=== PATIENT | female | born 1955 | race African-American/Black ===

== ENCOUNTER 2017-11-14 19:01 | Inpatient (IN) | payer MEDICARE, MEDICAID ==
[2017-11-14] MEDS ORDERED: Ketorolac Tromethamine 30 MG/ML VIAL ONE (20:04)
[2017-11-14] MEDS ORDERED: Metoclopramide HCl 10 MG/2 ML VIAL ONE (20:04)
[2017-11-14] MEDS ORDERED: Dexamethasone 4 mg/ml Vial ONE (20:04)
[2017-11-14 20:11] LABS: #Basophils 0.2 thou/uL (0.0-0.2); #Eosinphils 0.2 thou/uL (0.0-0.7); #Lymphocytes 2.5 thou/uL (1.20-3.40); #Monocytes 0.6 thou/uL (0.11-0.59); #Neutrophils 3.5 thou/uL (1.40-6.50); %Basophils 2.3 % (0.0-1.0); %Eosinophils 3.1 % (0.0-10.0); %Monocytes 9.1 % (0.0-10.0); %Neutrophils 49.5 % (42.0-75.0); Hemoglobin 14.4 g/dL (12.0-16.0); Mean Corpuscular HGB CONC 32.2 g/dL (32.0-36.0); Mean Corpuscular Hemoglobin 25.5 pg (27.0-31.0); Mean Platelet Volume 10.8 fL (7.4-10.4); Platelet Count 179 thou/uL (130-400); RBC Distribution Width 13.6 % (11.5-14.5); Red Blood Cell (RBC) Count 5.65 mill/uL (4.20-5.40)
[2017-11-14 20:21] LABS: PTT 27.1 SEC (22.9-36.1); Prothrombin Time 12.8 SEC (12.0-14.7)
--- NOTE | 2017-11-14 20:28 | RAD ---
PORTABLE CHEST: 11/14/17 HISTORY: Chest pain. The lungs are clear. Heart and mediastinum are unremarkable. Vascular markings are normal. IMPRESSION: No acute finding. POS: [facility]
[2017-11-14 20:37] LABS: ALT (SGPT) 19 U/L (8-55); AST (SGOT) 27 U/L (5-34); Albumin 4.3 g/dL (3.4-4.8); Alkaline Phosphatase 68 U/L (40-150); Anion Gap 15 mmol/L (10-20); BUN (Urea Nitrogen) 16 mg/dL (9.8-20.1); Bilirubin, Total 0.2 mg/dL (0.2-1.2); CK (CPK) 200 U/L (29-168); Calc. Creatinine Clearance 0 mL/min (70-130); Calcium 9.5 mg/dL (7.8-10.44); Carbon Dioxide 24 mmol/L (23-31); Chloride 106 mmol/L (98-107); Estimated GFR-MDRD 55; Globulin 3.3 g/dL (2.4-3.5); Glucose 86 mg/dL (80-115); Lipase 14 U/L (8-78); Protein, Total 7.6 g/dL (6.0-8.3); Sodium 140 mmol/L (136-145)
[2017-11-14 20:38] LABS: CKMB 3.1 ng/mL (0-6.6); Troponin I 0.028 ng/mL (< 0.028)
--- NOTE | 2017-11-14 21:32 | CT ---
CT HEAD WITHOUT CONTRAST: 11/14/17 Multiple axial tomograms obtained through the head without IV enhancement. HISTORY: Headache. Ventricles have normal size and position. There is a focal area of encephalomalacia involving the lef t frontal lobe which extends to the precentral gyrus and inferiorly into the subcortical white matter indicating an old left MCA infarct. There is no hemorrhage. There is no evidence of acute infarct. N o mass. IMPRESSION: Evidence of a remote left frontal lobe infarct. No evidence of acute process. POS: [facility]
[2017-11-14 21:55] LABS: Troponin I 0.041 ng/mL (< 0.028)
[2017-11-14] MEDS ORDERED: Enoxaparin Sodium 100 MG/ML SYRINGE ONE ×2 (22:48→22:50)
[2017-11-14] MEDS ORDERED: Nitroglycerin 2% Ointment 1 INCH/1 GM Packet ONE (22:48)
[2017-11-15] MEDS ORDERED: Zolpidem Tartrate 5 MG TAB PO SCH ×2 (00:45→21:00)
[2017-11-15 00:54] LABS: Troponin I 0.023 ng/mL (< 0.028)
[2017-11-15] MEDS ORDERED: Zolpidem Tartrate 5 MG TAB ONE (01:12)
[2017-11-15] MEDS ORDERED: Ondansetron ODT 4 MG TAB SL PRN (01:35)
[2017-11-15] MEDS ORDERED: Ondansetron HCl/PF 4 MG/2 ML Vial IVP PRN (01:35)
[2017-11-15] MEDS ORDERED: Acetaminophen 325 MG TAB PO PRN (01:35)
[2017-11-15] MEDS ORDERED: Nitroglycerin 2% Ointment 1 INCH/1 GM Packet TOP SCH (01:45)
[2017-11-15 02:10] VITALS: BMI 34.6
[2017-11-15 06:02] LABS: Troponin I 0.019 ng/mL (< 0.028)
[2017-11-15] MEDS ORDERED: Nicotine 14 MG PATCH TD SCH (06:15)
[2017-11-15] MEDS ORDERED: Furosemide 40 MG TAB PO PRN (06:18)
[2017-11-15] MEDS ORDERED: clonazePAM 0.5 MG TAB PO PRN (06:18)
[2017-11-15] MEDS ORDERED: PROVENTIL INHALER 6.7 G (200 INHALATIONS) INH PRN (06:18)
[2017-11-15 06:51] LABS: #Lymphocytes 1.4 thou/uL (1.20-3.40); #Monocytes 0.4 thou/uL (0.11-0.59); #Neutrophils 4.4 thou/uL (1.40-6.50); %Basophils 0.4 % (0.0-1.0); %Eosinophils 0.1 % (0.0-10.0); %Lymphocytes 21.9 % (21.0-51.0); %Monocytes 6.3 % (0.0-10.0); %Neutrophils 71.3 % (42.0-75.0); Hemoglobin 12.8 g/dL (12.0-16.0); Mean Corpuscular HGB CONC 31.3 g/dL (32.0-36.0); Mean Corpuscular Hemoglobin 24.7 pg (27.0-31.0); Mean Corpuscular Volume 79.1 fl (81.0-99.0); Mean Platelet Volume 10.8 fL (7.4-10.4); Platelet Count 180 thou/uL (130-400); RBC Distribution Width 13.5 % (11.5-14.5); Red Blood Cell (RBC) Count 5.17 mill/uL (4.20-5.40); White Blood Cell (WBC) Count 6.2 thou/uL (4.8-10.8)
--- NOTE | 2017-11-15 06:57 | HP ---
PRIMARY CARE PHYSICIAN: Dr. Leo Velazquez SQL DBA: Dr. Guajardo CHIEF COMPLAINT: Chest pain. HISTORY OF PRESENT ILLNESS: A 62-year-old female with a known history of coronary artery disease, CH F with an EF of 33%, who presents with a chief complaint of chest pain. The patient has frequent epi sodes of chest pain. The one she describes today is actually slightly different from her prior episo migdalia of chest pain related to her known cardiac disease. The chest pain today the patient actually lo calizes more to her right shoulder. She describes it as a sharp pinching sensation that occurs spora dically both at rest and with movement and without warning. It is described as sharp and rapidly res olves if she stops moving her shoulder. At the time of my evaluation, the patient endorses right shoulder pain. Of note, during this entire visit, the patient was frequently tearful when talking about mostly her s ocial issues. REVIEW OF SYSTEMS: As per HPI. CONSTITUTIONAL: No recent fevers or chills. HEENT: The patient endorses having headaches when she is talking about stressful things and tearful. Otherwise, no new vision changes or dizziness. CARDIOVASCULAR: Chest pain is clarified as right shoulder pain as above with some involvement of int ermittent neck pain with the shoulder pain, no chest pressure, no left-sided arm numbness or tingling . GASTROINTESTINAL: No nausea, no vomiting, no diarrhea, no abdominal pain. MUSCULOSKELETAL: No new myalgias or arthralgias. The remainder of review of systems otherwise negative. PAST MEDICAL HISTORY: 1. Type 2 diabetes. 2. Hypertension. 3. Obesity. 4. Congestive heart failure with EF of 33%. 5. Status post 11/09/2016 left heart catheterization demonstrating mild to moderate three-vessel dis ease and moderate OM disease, left main disease. 6. Status post . 7. Status post back surgery. 8. See documented history of question of schizophrenia. HOME MEDICATIONS: Please see the EMR for full details. The patient denies any changes to her medica tions in the last month. ALLERGIES: No known drug allergies. FAMILY HISTORY: The patient does not endorse a family history of cardiac disease. SOCIAL HISTORY: The patient is an active tobacco user of approximately half pack a day. Denies any alcohol or illicit drug use. The patient lives with her . The patient states that she someti mes "hates her " due to remote episode of infidelity. The patient is very tearful talking abo ut her feelings and fears upon her prior relationship issues throughout this entire visit. While dis cussing her social issues and her social distress she becomes quite tearful and anxious and complains of a headache. PHYSICAL EXAMINATION: VITAL SIGNS: Temperature of 98.3, pulse of 86, respirations 16, satting 95% on room air, blood press ure 133/63. GENERAL: The patient is awake, alert, conversant, in no acute distress, lying in the hospital bed. HEENT: Moist mucous membranes. Equal eye motions are intact. NECK: No carotid bruits. CARDIOVASCULAR: S1, S2. Pulses 2+ bilateral upper extremities, no pitting pedal edema. RESPIRATORY : Grossly clear to auscultation. No wheezes, rales or rhonchi. ABDOMEN: Positive bowel sounds, soft, nontender to palpation. MUSCULOSKELETAL: Moving all 4 extremities. LABORATORY AND IMAGING: WBC 7.0, hemoglobin 14.4, hematocrit 44.6, platelets 179. PT was 12.8, INR 1.0, sodium 140, potassium 5.0, chloride 106, bicarbonate 24, BUN 16, creatinine 1.21, glucose 86, ca lcium 9.5, total bilirubin 0.2, AST 27, ALT is 19. Creatinine kinase is 200. Alkaline phosphatase 6 8. Troponins are 0.028 followed by 0.041 followed by 0.023 followed by 0.019. BNP is 13.7, lipase 1 4, total protein 7.6, albumin 4.3. Chest x-ray 11/14/2017. Impression: "No acute finding." Brain CT to 11/14/2017. Impression: "Evidence of remote left frontal lobe infarct. No evidence of a cute process." ASSESSMENT AND PLAN: A 62-year-old female with a chief complaint of chest pain. 1. Chest pain. Localization of the patient's chest pain is less classic for coronary artery disease . However, the patient has a known history of coronary artery disease in the setting of mild troponi n elevation. We will continue to trend and closely monitor the patient's hemodynamics. I will notif y her outpatient ems educator and defer to them whether or not to pursue any advanced testing given t hat she does have known disease. I do not feel that she is currently in a CHF exacerbation situation . 2. Right shoulder discomfort. The patient has a known history of arthritis that she endorses. The patient's symptoms are reproducible particularly with right arm extension, raising the possibility of perhaps an orthopedic etiology for her chest pain. Plain films of the right shoulder, supportive nichelle ralph. Apply lidocaine patch p.r.n. as well. 3. Known history of cardiovascular disease. Please see discussion above. 4. Anxiety and depression. The patient appears to have a prominent component of anxiety, depression frequently becoming tearful and with somatic manifestations of her anxiety including headache. I re commended to the patient that she have this addressed on an outpatient basis. The patient states nata t this has been recommended to her, but she has not been able to do this. 5. Admit the patient to observation status to medical/surgical with telemetry. Greater than 45 minutes spent coordinating care for this patient. Thank you for asking me to care for the patient.
[2017-11-15 07:18] LABS: ALT (SGPT) 17 U/L (8-55); AST (SGOT) 15 U/L (5-34); Albumin 3.7 g/dL (3.4-4.8); Alkaline Phosphatase 61 U/L (40-150); Anion Gap 12 mmol/L (10-20); BUN (Urea Nitrogen) 17 mg/dL (9.8-20.1); Bilirubin, Total 0.2 mg/dL (0.2-1.2); Calc. Creatinine Clearance 98 mL/min (70-130); Calcium 9.1 mg/dL (7.8-10.44); Carbon Dioxide 25 mmol/L (23-31); Chloride 108 mmol/L (98-107); Estimated GFR-MDRD 78; Globulin 2.6 g/dL (2.4-3.5); Glucose 105 mg/dL (80-115); Potassium 4.4 mmol/L (3.5-5.1); Protein, Total 6.3 g/dL (6.0-8.3); Sodium 141 mmol/L (136-145)
[2017-11-15] MEDS ORDERED: Aspirin 325 MG TAB PO SCH (08:00)
[2017-11-15] MEDS ORDERED: Potassium Chloride 10 MEQ TAB PO SCH (08:00)
[2017-11-15] MEDS ORDERED: Carvedilol 3.125 MG TAB PO SCH (09:00)
[2017-11-15] MEDS ORDERED: HYDROcodone/Acetaminophen 10/325 mg Tablet PO SCH (09:00)
[2017-11-15] MEDS ORDERED: Lidocaine 5% Patch TD SCH (09:00)
[2017-11-15] MEDS ORDERED: metFORMIN XR 500 MG TAB PO SCH (09:00)
[2017-11-15] MEDS ORDERED: Enoxaparin Sodium 40 MG/0.4 ML SYRINGE SC SCH (09:00)
[2017-11-15] MEDS ORDERED: Pregabalin 75 MG CAP PO SCH (09:00)
[2017-11-15] MEDS ORDERED: Lisinopril 5 MG TAB PO SCH (09:00)
--- NOTE | 2017-11-15 09:13 | RAD ---
THREE VIEW RIGHT SHOULDER: Indication: AC joint pain. FINDINGS: No fracture or dislocation. There is mild osteoarthritis. IMPRESSION: Mild osteoarthritis of the right shoulder without evidence of an acute osseous abnormality. POS: [facility]
--- NOTE | 2017-11-15 11:53 | CON ---
DATE OF CONSULTATION: 11/15/2017 PRIMARY HUMAN RESOURCES TRAINING MANAGER: Dr. Mulugeta Guajardo REASON FOR CONSULTATION: Indeterminate troponin levels. HISTORY OF PRESENT ILLNESS: Ms. Leia Palmer is a 62-year-old patient of Dr. Guajardo. The patien t came to the hospital last night for evaluation. She said that she had some chest tightness and als o had some difficulty with seeing anything for a couple of minutes when she is lying in bed. Her hus band came back and eventually took her blood pressure and it was elevated. She came here to the [facility] for evaluation and was found to have indeterminate troponins. PAST MEDICAL HISTORY: She has a history of cardiac catheterization done 11/10/2016. Mild nonobstruc tive plaque in the coronaries with the most significant being a 30% ostial lesion in the left main, b ut no obstructive stenosis. Other past history: 1. Hypertension. 2. Obesity. 3. Diabetes. 4. Previous section. 5. Back surgery. REVIEW OF SYSTEMS: CONSTITUTIONAL: No significant weight gain or loss. VISION: No changes. HEARING: No changes. PULMONARY: No cough or wheezing. GASTROINTESTINAL: No nausea, vomiting, diarrhea. SKIN: No rashes. NEUROLOGIC: No unilateral weakness or numbness. PSYCHIATRIC: No unusual depression or anxiety. HEMATOLOGIC: No unusual bruising. GENITOURINARY: No burning with urination. MUSCULOSKELETAL: No unusual joint pains. MEDICATIONS: 1. Lisinopril 5 mg daily. 2. The home medicine list lists carvedilol 3.125 mg twice a day. The patient is uncertain about gautam e of her medicines. 3. Metformin. 4. Ventolin. 5. Atorvastatin she mentions, but is not on the list in the hospital. 6. Aspirin. PHYSICAL EXAMINATION: GENERAL: This is a pleasant, elderly woman. She is somewhat apprehensive. She is also somewhat con cerned because she did not eat breakfast. When I told her that she is able to eat breakfast, she was more relaxed. VITAL SIGNS: Blood pressure 132/66, pulse 80 regular. HEENT: Eyes; sclerae nonicteric. Mouth; mucous membranes moist. NECK: Supple, no lymphadenopathy. LUNGS: Clear, no wheezing, rales or rhonchi. CARDIAC: Normal S1, normal S2. There is no murmur, rub or gallop. ABDOMEN: Obese, nontender, no hepatosplenomegaly. EXTREMITIES: Warm, dry, no clubbing, no cyanosis or edema. HEMATOLOGIC: No unusual bruising. GENITOURINARY: No burning with urination. Echocardiogram is pending. LABORATORY: The troponin level, peak was 0.041 still in the indeterminate range, indeterminate is al l the way up to 0.29. ASSESSMENT: 1. Mild nonobstructive atherosclerotic heart disease. 2. Hypertension. 3. History of cardiomyopathy, subsequent ejection fraction last spring is listed as over 50%. 4. Blood pressure is somewhat labile. She said she does not feel well on lisinopril. PLAN: 1. Review echocardiogram. 2. Consider changing from lisinopril to angiotensin receptor maegan. 3. Confirm that she is taking carvedilol. 4. Further recommendations after review of the echo. Dr. Guajardo will resume care tomorrow. ADDENDUM: Echocardiogram showed ejection fraction is normal at 55%-60%, there is mild mitral regurgi tation, trace tricuspid insufficiency and grade I diastolic dysfunction. Based on this, the patient can be released home to follow up with Dr. Guajardo as an outpatient. The patient states she did no t feel well on lisinopril, we would recommend consideration for Diovan 80 mg twice a day to be starte d tomorrow. To follow up with Dr. Guajardo as an outpatient.
[2017-11-15 11:59] VITALS: BP 148/67; TEMP 98.3
[2017-11-15] MEDS ORDERED: Lidocaine Patch Removal 1 EACH TOP SCH (21:00)
--- NOTE | 2017-11-16 06:26 | DIS ---
PRIMARY CARE PHYSICIAN: Leo Velazquez D.O. DIAGNOSES ON ADMISSION: 1. Chest pain, rule out acute coronary syndrome. 2. Right shoulder pain. 3. Coronary artery disease. 4. Anxiety and depression. DIAGNOSES ON DISCHARGE: 1. Mild nonobstructive atherosclerotic heart disease. 2. Chest pain, resolved. 3. Hypertension. 4. Cardiomyopathy with ejection fraction of 55% to 60%. PROCEDURES: 1. CT of the head without contrast showing evidence of remote left frontal infarct, no acute process . 2. Right shoulder x-ray showing mild osteoarthritis of the right shoulder without evidence of acute abnormality. 3. Echocardiogram showing ejection fraction of 55% to 60%, mild mitral regurgitation, trace tricuspi d insufficiency, and grade I diastolic dysfunction. CONSULTATIONS: Cardiology, Dr. Simpson for Dr. Guajardo. LABORATORY DATA: Cardiac marker indeterminate at 0.041 followed by 2 negatives. Remainder of the la b was unremarkable. SUMMARY OF HOSPITAL COURSE: This is a 62-year-old -[place] female with a known history of co ronary artery disease and congestive heart failure, who presented complaining of frequent episodes of chest pain from her heart disease, but then the pain was a little bit different the day of presentat ion and more localized to her right shoulder pinching pain, sharp and rapidly resolves if she stops m oving. Patient was put in observation with her chest pain. Dr. Simpson was consulted. An echocardio gram was ordered with the above results. Dr. Simpson evaluated the patient, and given her negative ca rdiac markers following that one indeterminate and her ejection fraction on her echocardiogram, he re commended that she could be discharged. Did change her from lisinopril to Diovan and her lisinopril made her feel bad and she is to follow up with Dr. Guajardo. Patient had no more chest pain at the time of discharge. DISCHARGE MANAGEMENT: Discharged home. Follow up with Dr. Guajardo in 1 week. ACTIVITY: As tolerated. DIET: Healthy heart, low sodium diet. DISCHARGE MEDICATIONS: 1. Valsartan 80 mg twice a day. Patient is to continue all of her other home medications includin. Depakote ER 250 mg daily. 3. Omeprazole 20 mg daily. 4. Aspirin 81 mg daily. 5. Carvedilol 3.125 mg twice a day. 6. Ambien 10 mg at night. 7. Metformin 250 mg at night. 8. Metformin ER 500 mg daily. 9. Carbamazepine 200 mg twice a day. 10. Seroquel 100 mg daily.
[2017-11-16] MEDS ORDERED: Aspirin 81 mg Enteric Coated Tablet PO SCH (09:00)
[2017-11-16] MEDS ORDERED: Valsartan 80 MG TAB PO SCH ×2 (09:00→21:00)
--- NOTE | 2017-12-23 12:36 | EKG ---
Test Reason : CHEST PAIN Blood Pressure : / mmHG Vent. Rate : 063 BPM Atrial Rate : 063 BPM P-R Int : 144 ms QRS Dur : 070 ms QT Int : 396 ms P-R-T Axes : 070 -35 063 degrees QTc Int : 405 ms Normal sinus rhythm Possible Left atrial enlargement Left axis deviation Septal infarct , age undetermined Abnormal ECG Confirmed by LEATHA WALKER, DONOVAN ([id number]), editorial specialist MAGDALENE GRIFFIN ([id number]) on 12/23/2017 12:35:44 PM Referred By: Confirmed By:DONOVAN ZHANG MD
== END 2017-11-15 14:15 | disposition home or self-care (01) | DRG 313 ==
LOC: ERS 19:01 → 2NO 22:00
PROVIDERS: ADMIT Internal Medicine; ATTEND Internal Medicine
DX: R07.9 Chest pain, unspecified (principal); I25.10 Atherosclerotic heart disease of native coronary artery without angina pectoris; I11.0 Hypertensive heart disease with heart failure; I50.9 Heart failure, unspecified; I42.9 Cardiomyopathy, unspecified; E11.9 Type 2 diabetes mellitus without complications; E66.9 Obesity, unspecified; Z68.34 Body mass index [BMI] 34.0-34.9, adult; F17.210 Nicotine dependence, cigarettes, uncomplicated; F41.9 Anxiety disorder, unspecified; F32.9 Major depressive disorder, single episode, unspecified; M25.511 Pain in right shoulder
CPT/HCPCS: 36415; 70450; 71045; 80053; 82550; 82553; 83690; 83880; 84484; 85025; 85610; 85730; 93005; 93306; 96365; 96372; 96375; 99406; G8978-GP-CJ; G8979-GP-CJ; G8980-GP-CJ; J1100; J1650; J1885; J2765

== ENCOUNTER 2018-02-09 07:36 | Outpatient (CLI) | payer MEDICARE, MEDICAID ==
--- NOTE | 2018-02-09 10:43 | MRI ---
MRI LUMBAR SPINE WITH AND WITHOUT CONTRAST: Date: 02/09/18 Multiplanar, multisequential imaging of lumbar spine obtained. Postcontrast images obtained after adm inistration of 20 mL MultiHance IV. INDICATIONS: Low back pain. History of prior lumbar surgery. FINDINGS: Lumbar vertebra maintain height throughout. Pedicle screws are seen transfixing L5 and S1. Slight ant erolisthesis at L4-5 is noted. Interbody implant and partial fusion at L5-S1. On sagittal imaging, there is evidence of a broad based disc bulge at the T10-T11 level which abuts t he anterior cord. This is not adequately evaluated on this lumbar study and is only seen at the upper portion of the sagittal image. At T11-T12, there is mild disc bulge with no evidence of central canal stenosis. At T12-L1, there is no significant disc bulge. At L1-2, there is no significant disc bulge. Mild facet arthrosis. No central canal or foraminal sten osis. At L2-3, there is mild disc bulge. Mild to moderate facet and ligamentous hypertrophy. Very mild cent ral canal stenosis. At L3-4, there is a more prominent diffuse disc bulge flattening the thecal sac at this level. The fa cet and ligamentous hypertrophy is more pronounced. These changes result in moderate to severe centra l canal stenosis at this level. Bilateral foraminal stenosis secondary to diffuse disc bulge and face t hypertrophy. At L4-5, there is slight anterolisthesis as noted above. This is associated with a broad based disc b ulge. Facet and ligamentous hypertrophy is very prominent. Severe central canal stenosis. Bilateral f oraminal stenosis. At L5-S1, there is interbody implant with fusion. No residual disc. No central canal or foraminal jorge nosis identified. IMPRESSION: Moderate to severe central canal stenosis at L3-4 and at L4-5 as described above. POS: [facility]
== END 2018-02-09 07:37 | disposition home or self-care (01) ==
LOC: SCSMRI 07:36
PROVIDERS: ATTEND Neurological Surgery
DX: Q76.2 Congenital spondylolisthesis (principal); M48.061 Spinal stenosis, lumbar region without neurogenic claudication; Z98.1 Arthrodesis status
CPT/HCPCS: 72158; 82565

== ENCOUNTER 2018-05-07 09:07 | Outpatient (CLI) | payer MEDICARE ==
[2018-05-07 10:55] LABS: Hemoglobin 12.8 g/dL (12.0-16.0); Mean Corpuscular HGB CONC 32.4 g/dL (32.0-36.0); Mean Corpuscular Hemoglobin 25.2 pg (27.0-31.0); Mean Corpuscular Volume 77.8 fL (78.0-98.0); Mean Platelet Volume 10.8 fL (7.4-10.4); Platelet Count 163 thou/uL (130-400); RBC Distribution Width 12.7 % (11.5-14.5); Red Blood Cell (RBC) Count 5.09 mill/uL (4.20-5.40); White Blood Cell (WBC) Count 5.7 thou/uL (4.8-10.8)
[2018-05-07 11:12] LABS: Anion Gap 15 mmol/L (10-20); BUN (Urea Nitrogen) 18 mg/dL (9.8-20.1); Calc. Creatinine Clearance 0 mL/min (70-130); Calcium 9.6 mg/dL (7.8-10.44); Carbon Dioxide 27 mmol/L (23-31); Chloride 102 mmol/L (98-107); Estimated GFR-MDRD 65; Glucose 107 mg/dL (80-115); Potassium 4.3 mmol/L (3.5-5.1); Sodium 140 mmol/L (136-145)
--- NOTE | 2018-05-07 22:38 | EKG ---
Test Reason : Blood Pressure : / mmHG Vent. Rate : 063 BPM Atrial Rate : 063 BPM P-R Int : 160 ms QRS Dur : 070 ms QT Int : 406 ms P-R-T Axes : 075 -18 061 degrees QTc Int : 415 ms Sinus rhythm with occasional Premature ventricular complexes Low voltage QRS Borderline ECG When compared with ECG of 14-NOV-2017 19:02, Premature ventricular complexes are now Present Criteria for Septal infarct are no longer Present T wave amplitude has decreased in Anterior leads Confirmed by Nate GUERRA ([id number]) on 05/07/2018 10:37:58 PM Referred By: LASHON Confirmed By:Nate GUERRA
== END 2018-05-07 09:08 | disposition home or self-care (01) ==
LOC: LABBT 09:07
PROVIDERS: ATTEND Neurological Surgery
DX: Z01.818 Encounter for other preprocedural examination (principal); M54.16 Radiculopathy, lumbar region
CPT/HCPCS: 80048; 85027; 93005; 93010

== ENCOUNTER 2018-05-07 09:15 | Inpatient (IN) | payer MEDICARE ==
[2018-05-07 10:07] VITALS: BMI 33.9
[2018-05-14] MEDS ORDERED: Sodium Chloride 0.9% 10 ML ONE (08:01)
[2018-05-14] MEDS ORDERED: CEFAZOLIN/Water 2 GM/20 ML SYRINGE ONE (08:25)
[2018-05-14] MEDS ORDERED: Midazolam HCl 2 mg/2 ml Vial ONE (08:44)
[2018-05-14] MEDS ORDERED: Fentanyl 100 MCG/2 ML VIAL ONE ×3 (08:58→11:27)
[2018-05-14] MEDS ORDERED: Glycopyrrolate 0.2 MG/ML 5 ML SYRINGE ONE (09:13)
[2018-05-14] MEDS ORDERED: ePHEDrine/0.9% NaCl/PF SYRINGE 50 mg/10 ml ONE (09:13)
[2018-05-14] MEDS ORDERED: PROPOFOL 200 MG/20 ML VIAL ONE (09:13)
[2018-05-14] MEDS ORDERED: Lidocaine 1% PF 5 ML VIAL ONE (09:13)
[2018-05-14] MEDS ORDERED: Ondansetron HCl/PF 4 MG/2 ML Vial ONE (09:13)
[2018-05-14] MEDS ORDERED: HYDROmorphone 0.5 MG/0.5 ML SYRINGE ONE ×4 (10:40→12:53)
--- NOTE | 2018-05-14 11:32 | OP ---
DATE OF PROCEDURE: 05/14/2018 SURGEON: Andres Castillo M.D. WEB DESIGNER DEVELOPER: PRANAV Duran PROCEDURE: Exploration spinal fusion L5-S1, removal of hardware L5-S1. L3-L5 decompressive laminect elder, posterolateral arthrodesis, demineralized bone matrix, posterolateral arthrodesis, pedicle screw instrumentation L3-L5. PROCEDURE IN DETAIL: The patient was brought to the operating room and intubated. She was rolled in the prone position on gel-filled chest rolls. The previous incision was reopened and extended expos ing L3 through the sacrum. The prior hardware removed the joseph and nuts. The fusion seemed to be tammy id. We next exposed L3-L5 and performed laminectomies, decompressing the neural elements with partic ular focus to the left L4-L5. After complete decompression had been secured, pedicle screws were tung steffany at L3 and L4 bilaterally using lateral fluoroscopic guidance. A joseph was then secured between L3, L4, and L5 connected by nuts, which were final tightened. The wound was then extensively irrigated, immaculate hemostasis was secured. A combination of demineralized bone matrix, local morselized aut ograft was laid over the laminar and posterolateral surfaces for the purpose of arthrodesis. Vancomy thomas powder was applied and the wound was then closed in anatomic layers.
[2018-05-14] MEDS ORDERED: Ondansetron HCl/PF 4 MG/2 ML Vial IVP PRN (11:35)
[2018-05-14] MEDS ORDERED: Promethazine HCl 25 MG/ML VIAL IM PRN ×2 (11:35→12:32)
[2018-05-14] MEDS ORDERED: Promethazine HCl 25 MG/ML VIAL SLOW IVP PRN (11:35)
[2018-05-14] MEDS ORDERED: HYDROmorphone 0.5 MG/0.5 ML SYRINGE SLOW IVP PRN (12:31)
[2018-05-14] MEDS ORDERED: diphenhydrAMINE 50 MG/ML VIAL IVP PRN (12:32)
[2018-05-14] MEDS ORDERED: Promethazine HCl 12.5 MG SUPP PR PRN (12:32)
[2018-05-14] MEDS ORDERED: HYDROcodone/Acetaminophen 10/325 mg Tablet PO PRN (12:32)
[2018-05-14] MEDS ORDERED: Ondansetron HCl/PF 4 MG/2 ML Vial SLOW IVP PRN (12:32)
[2018-05-14] MEDS ORDERED: Meperidine HCl/PF 25 MG/ML VIAL SLOW IVP PRN (12:32)
[2018-05-14] MEDS ORDERED: Milk Of Magnesia 30 ML UDCUP PO PRN (12:32)
[2018-05-14] MEDS ORDERED: Promethazine 25 MG TAB PO PRN (12:32)
[2018-05-14] MEDS ORDERED: traMADol HCl 50 MG TAB PO PRN (12:32)
[2018-05-14] MEDS ORDERED: diphenhydrAMINE 25 MG CAP PO PRN (12:32)
[2018-05-14] MEDS ORDERED: Mag-Al 1200 mg/1200 mg/30 ML UDCUP PO PRN (12:32)
[2018-05-14] MEDS ORDERED: CEFAZOLIN/Water 2 GM/20 ML SYRINGE SLOW IVP SCH (14:00)
[2018-05-14] MEDS: HYDROcodone/Acetaminophen 10/325 mg Tablet PO PRN ×3 (14:05→21:37)
[2018-05-14] MEDS: Sodium Chloride 0.9% 1,000 ML IV SCH (14:15)
[2018-05-14] MEDS ORDERED: PROVENTIL INHALER 6.7 G (200 INHALATIONS) INH PRN (14:58)
[2018-05-14] MEDS ORDERED: Polyethylene Glycol 3350 17 GM Packet PO PRN (15:04)
[2018-05-14] MEDS: carBAMazepine 200 MG TAB PO SCH ×2 (15:21→21:36)
[2018-05-14] MEDS: tiZANidine HCl 4 MG TAB PO PRN ×2 (15:21→21:38)
[2018-05-14] MEDS ORDERED: Artificial Tears 18 DROP/0.9 ML EA EYE PRN (15:24)
[2018-05-14] MEDS ORDERED: Eucerin (Mineral Oil/Petrolatum,White) 30 gm Jar TOP PRN (15:24)
[2018-05-14] MEDS ORDERED: Acetaminophen 325 MG TAB PO PRN (15:24)
[2018-05-14] MEDS ORDERED: Diabetic Tussin 200 MG/10 ML UDCUP PO PRN (15:24)
[2018-05-14] MEDS ORDERED: Dextrose 5% in Water 1,000 ML IV PRN (15:24)
[2018-05-14] MEDS ORDERED: Sodium Chloride 0.65% Nasal 44 ML BOT EA NARE PRN (15:24)
[2018-05-14] MEDS ORDERED: Senokot 8.6 MG TAB PO PRN (15:24)
[2018-05-14] MEDS ORDERED: HumaLOG 300 UNITS/3 ML VIAL SC PRN ×2 (15:24)
[2018-05-14] MEDS ORDERED: Loperamide HCl 2 MG CAP PO PRN (15:24)
[2018-05-14] MEDS ORDERED: hydrALAZINE 20 MG/ML VIAL SLOW IVP PRN (15:24)
[2018-05-14] MEDS ORDERED: Bisacodyl 10 MG SUPP PR PRN (15:24)
[2018-05-14] MEDS ORDERED: Dextrose 50% Abboject 50 ML SYRINGE SLOW IVP PRN (15:24)
[2018-05-14] MEDS ORDERED: Chloraseptic Spray 180 ml Bottle PO PRN (15:24)
--- NOTE | 2018-05-14 15:28 | PDOC.PN ---
- Subjective Encounter Start Date: 05/14/18 Encounter Start Time: 15:26 -: old records requested/rev Patient seen and examined. No new complaints. No overnight events consulted for medical management - Objective MAR Reviewed: Yes Vital Signs & Weight: Vital Signs (12 hours) Temp Pulse Resp BP Pulse Ox 05/14/18 13:54 98.7 F 69 20 98 05/14/18 13:40 98.7 F 69 20 131/75 98 Weight Weight 210 lb Phys Exam - Physical Examination Constitutional: NAD HEENT: PERRLA, moist MMs, sclera anicteric Neck: no JVD, supple Respiratory: no wheezing, no rales, no rhonchi Cardiovascular: RRR, no significant murmur, no rub Gastrointestinal: soft, non-tender, no distention, positive bowel sounds Musculoskeletal: no edema, pulses present Neurological: non-focal, normal sensation, moves all 4 limbs Lymphatic: no nodes Psychiatric: normal affect, A&O x 3 Skin: no rash, normal turgor Dx/Plan (1) S/P laminectomy Code(s): Z98.890 - OTHER SPECIFIED POSTPROCEDURAL STATES Status: Acute Comment: management as per primary team,pain control, post operative care (2) Anxiety and depression Code(s): F41.9 - ANXIETY DISORDER, UNSPECIFIED; F32.9 - MAJOR DEPRESSIVE DISORDER, SINGLE EPISODE, UNSPECIFIED Status: Chronic Comment: resume home medication, seroquel, abilify, cymbalta (3) Diabetes type 2, controlled Code(s): E11.9 - TYPE 2 DIABETES MELLITUS WITHOUT COMPLICATIONS Status: Chronic Comment: resume metformin, insulin as per sliding scale (4) Dyslipidemia Code(s): E78.5 - HYPERLIPIDEMIA, UNSPECIFIED Status: Chronic (5) GERD (gastroesophageal reflux disease) Code(s): K21.9 - GASTRO-ESOPHAGEAL REFLUX DISEASE WITHOUT ESOPHAGITIS Status: Chronic Comment: resume protonix (6) Hypertension Code(s): I10 - ESSENTIAL (PRIMARY) HYPERTENSION Status: Chronic Comment: resume coreg, valsartan (7) Obesity (BMI 30.0-34.9) Code(s): E66.9 - OBESITY, UNSPECIFIED Status: Chronic (8) Bipolar disorder Code(s): F31.9 - BIPOLAR DISORDER, UNSPECIFIED Status: Acute Comment: resume tegretol, depakote - Plan cont current plan of care, plan discussed w/ family * will restart her home medication * monitor vitals * hold BP meds for SBP <120 * medication reviewed as below * symptomatic treatment * start hyperglycemia protocol treatment * pain control * ambulate as tolerated * code status- full code * SCD. * fentanyl prn for pain * discussed with family Review of Systems - Review of Systems Constitutional: negative: fever, chills, sweats, weakness, malaise, other ENT: negative: Ear Pain, Ear Discharge, Nose Pain, Nose Discharge, Nose Congestion, Mouth Pain, Mouth Swelling, Throat Pain, Throat Swelling, Other Respiratory: negative: Cough, Dry, Shortness of Breath, Hemoptysis, SOB with Excertion, Pleuritic Pain, Sputum, Wheezing Cardiovascular: negative: chest pain, palpitations, orthopnea, paroxysmal nocturnal dyspnea, edema, light headedness, other Gastrointestinal: negative: Nausea, Vomiting, Abdominal Pain, Diarrhea, Constipation, Melena, Hematochezia, Other Genitourinary: negative: Dysuria, Frequency, Incontinence, Hematuria, Retention , Other Musculoskeletal: Back Pain. negative: Neck Pain, Shoulder Pain, Arm Pain, Hand Pain, Leg Pain, Foot Pain, Other - Medications/Allergies Allergies/Adverse Reactions: Allergies Allergy/AdvReac Type Severity Reaction Status Date / Time morphine Allergy rash, Verified 05/07/18 10:08 hallucinations Medications: Current Medications Acetaminophen (Tylenol) 650 mg PO Q4H PRN PRN Reason: Headache/Fever or Mild Pain Hydrocodone Bitart/Acetaminophen ([place] 10/325) 1 tab PO Q4H PRN PRN Reason: PAIN (1-3) Hydrocodone Bitart/Acetaminophen ([place] 10/325) 2 tab PO Q4H PRN PRN Reason: PAIN (4-6) Last Admin: 05/14/18 14:05 Dose: 2 tab Al Hydroxide/Mg Hydroxide (Maalox) 30 ml PO Q4H PRN PRN Reason: Heartburn or Indigestion Albuterol Sulfate (Proventil Hfa) 2 puff INH Q4H PRN PRN Reason: ASTHMA Aripiprazole (Abilify) 5 mg PO HS ST[facility] Artificial Tears (Tears Naturale) 0 drop EA EYE PRN PRN PRN Reason: Dry Eyes Bisacodyl (Dulcolax) 10 mg NE DAILYPRN PRN PRN Reason: Constipation Carbamazepine (Tegretol) 200 mg PO TID [facility] Last Admin: 05/14/18 15:21 Dose: 200 mg Cefazolin Sodium (Ancef) 2 gm SLOW IVP 0100,0900,1700 [facility] Stop: 05/15/18 01:01 Dextrose/Water (Dextrose 50%) 25 gm SLOW IVP PRN PRN PRN Reason: Hypoglycemia Diclofenac Sodium (Voltaren) 75 mg PO QAM[facility] Diphenhydramine HCl (Benadryl) 25 mg PO Q6H PRN PRN Reason: Itching Diphenhydramine HCl (Benadryl) 25 mg IVP Q6H PRN PRN Reason: Itching Divalproex Sodium (Depakote Er) 250 mg PO QAM [facility] Duloxetine HCl (Cymbalta) 30 mg PO BID [facility] Gabapentin (Neurontin) 300 mg PO TID [facility] Glucagon (Glucagon) 1 mg IM PRN PRN PRN Reason: Hypoglycemia Guaifenesin (Robitussin Sf) 200 mg PO Q4H PRN PRN Reason: Cough Hydralazine HCl (Apresoline) 10 mg SLOW IVP Q4H PRN PRN Reason: Systolic BP > 180 Hydrochlorothiazide (Hydrochlorothiazide) 25 mg PO QAM [facility] Sodium Chloride (Normal Saline 0.9%) 1,000 mls @ 75 mls/hr IV .[id number] [facility] Last Admin: 05/14/18 14:15 Dose: Not Given Dextrose/Water (D5w) 1,000 mls @ 0 mls/hr IV .Q0M PRN; As Directed PRN Reason: Hypoglycemia Insulin Human Lispro (Humalog) 0 units SC .MODERATE SLIDING SC PRN PRN Reason: Moderate Correctional Scale Insulin Human Lispro (Humalog) 0 units SC .BEDTIME SLIDING SC PRN PRN Reason: Bedtime Correctional Scale Loperamide HCl (Imodium) 2 mg PO PRN PRN PRN Reason: Diarrhea/Loose Stools Magnesium Hydroxide (Milk Of Magnesium) 30 ml PO Q12H PRN PRN Reason: Constipation Meperidine HCl (Demerol) 25 mg SLOW IVP Q2H PRN PRN Reason: Moderate Breakthrough Pain Meperidine HCl (Demerol) 35 mg SLOW IVP Q2H PRN PRN Reason: Severe Breakthrough Pain Metformin HCl (Glucophage Xr) 500 mg PO QAM-[facility] STEF[facility] Metformin HCl (Glucophage) 250 mg PO HS [facility] Mineral Oil/White Petrolatum (Eucerin Cream) 0 gm TOP BIDPRN PRN PRN Reason: Dry Skin Ondansetron HCl (Zofran) 4 mg SLOW IVP Q8H PRN PRN Reason: Nausea Pantoprazole Sodium (Protonix) 40 mg PO DAILY ST[facility] Phenol (Chloraseptic [place] 180 Ml Bot) 0 ml PO PRN PRN PRN Reason: Sore Throat Pneumococcal Polyvalent Vaccine (Pneumovax 23) 0.5 ml IM .ONCE ONE Stop: 05/14/18 21:01 Polyethylene Glycol (Miralax) 17 gm PO DAILYPRN PRN PRN Reason: Constipation Promethazine HCl (Phenergan) 12.5 mg IM Q4H PRN PRN Reason: Nausea/Vomiting Promethazine HCl (Phenergan) 12.5 mg PO Q4H PRN PRN Reason: Nausea/Vomiting Promethazine HCl (Phenergan Suppository) 12.5 mg NE Q4H PRN PRN Reason: Nausea/Vomiting Quetiapine Fumarate (Seroquel) 100 mg PO HS [facility] Senna (Senokot) 2 tab PO HSPRN PRN PRN Reason: Constipation Sodium Chloride (Flush - Normal Saline) 10 ml IVF PRN PRN PRN Reason: Saline Flush Sodium Chloride (Koppel Nasal [place] 0.65%) 0 ml EA NARE QIDPRN PRN PRN Reason: Nasal Congestion Tizanidine HCl (Zanaflex) 4 mg PO Q6H PRN PRN Reason: MUSCLE SPASM Last Admin: 05/14/18 15:21 Dose: 4 mg Tramadol HCl (Ultram) 50 mg PO Q6H PRN PRN Reason: PAIN (1-3) Tramadol HCl (Ultram) 100 mg PO Q6H PRN PRN Reason: PAIN (4-6) Trazodone HCl (Desyrel) 25 mg PO HS [facility] Valsartan (Diovan) 80 mg PO BID [facility] Zolpidem Tartrate (Ambien) 10 mg PO HS [facility]
[2018-05-14] MEDS ORDERED: Fentanyl 100 MCG/2 ML VIAL SLOW IVP PRN (15:53)
[2018-05-14] MEDS: CEFAZOLIN/Water 2 GM/20 ML SYRINGE SLOW IVP SCH (16:57)
[2018-05-14] MEDS: traMADol HCl 50 MG TAB PO PRN (16:58)
[2018-05-14] MEDS ORDERED: traZODone HCl 50 MG TAB PO SCH (21:00)
[2018-05-14] MEDS ORDERED: Aripiprazole 10 MG TAB PO SCH (21:00)
[2018-05-14] MEDS ORDERED: metFORMIN 500 MG TAB PO SCH (21:00)
[2018-05-14] MEDS ORDERED: Zolpidem Tartrate 5 MG TAB PO SCH (21:00)
[2018-05-14] MEDS: DULoxetine 30 MG CAP PO SCH (21:36)
[2018-05-14] MEDS: Gabapentin 300 MG CAP PO SCH (21:36)
[2018-05-14] MEDS: Valsartan 80 MG TAB PO SCH (21:36)
[2018-05-15] MEDS: Sodium Chloride 0.9% 1,000 ML IV SCH (01:46)
[2018-05-15] MEDS: CEFAZOLIN/Water 2 GM/20 ML SYRINGE SLOW IVP SCH (01:47)
[2018-05-15] MEDS: HYDROcodone/Acetaminophen 10/325 mg Tablet PO PRN ×3 (01:48→10:23)
[2018-05-15] MEDS: tiZANidine HCl 4 MG TAB PO PRN ×2 (06:10→13:59)
--- NOTE | 2018-05-15 07:31 | DIS ---
DATE OF ADMISSION: 05/14/2018 DATE OF DISCHARGE: 05/15/2018 HOSPITAL COURSE: The patient is a 63-year-old female status post removal of hardware and extension o f lumbar fusion about prior fusion L2-L5. Postoperatively, she is doing well. Her pain has been wel l controlled with p.o. medication, she is tolerating a regular diet, and she is voiding appropriate. She is ambulating short distances to the bathroom and in the hallways with a walker. She has 5/5 st rength throughout. No sensation changes. She has a small amount of serosanguineous discharge on the dressing, but this is decreasing per nursing. There is no active drainage. I feel that it is appro priate for discharge home today with home health services which will include nursing and physical the rapy. Case management will be consulted and they will arrange. I have discharged the patient with p rescriptions for hydrocodone and Zanaflex and Keflex. I have discussed home care and precautions. Javier hurst will plan to follow up with the patient in 2 weeks in our office with x-rays at that time.
[2018-05-15] MEDS: carBAMazepine 200 MG TAB PO SCH (07:45)
[2018-05-15] MEDS: Gabapentin 300 MG CAP PO SCH (07:45)
[2018-05-15] MEDS: Valsartan 80 MG TAB PO SCH (07:45)
[2018-05-15] MEDS: DULoxetine 30 MG CAP PO SCH (07:46)
[2018-05-15] MEDS: traMADol HCl 50 MG TAB PO PRN ×2 (07:47→13:59)
[2018-05-15] MEDS ORDERED: Diclofenac Sodium 25 mg Tablet PO SCH (08:00)
[2018-05-15] MEDS ORDERED: metFORMIN XR 500 MG TAB PO SCH (08:00)
[2018-05-15] MEDS ORDERED: Hydrochlorothiazide 25 MG TAB PO SCH (09:00)
[2018-05-15 11:42] VITALS: BP 123/69; TEMP 98.2
--- NOTE | 2018-05-15 12:19 | DIS ---
DATE OF ADMISSION: 05/14/2018 DATE OF DISCHARGE: 05/15/2018 PRIMARY CARE PHYSICIAN: Dr. Leo Velazquez. DISCHARGE DISPOSITION: Home. PRIMARY DISCHARGE DIAGNOSES: Status post spinal fusion L5-S1, removal of hardware L5-S1, decompressi ve laminectomy L3-L5. SECONDARY DISCHARGE DIAGNOSES: Bipolar disorder, anxiety and depression, diabetes type 2, dyslipidem ia, gastroesophageal reflux disease, hypertension, obesity with body mass index 33. PRIMARY PROCEDURES AND OPERATIONS: Spinal fusion L5-S1, removal of hardware L5-S1, L3-L5 decompressi ve laminectomy. RADIOLOGICAL INVESTIGATION: None. SIGNIFICANT LABORATORY DATA: Accu-Cheks within normal limit. DISCHARGE MEDICATIONS: Tylenol #4 one tablet q.6 hourly p.r.n., Proventil 2 puff inhalation q.6 hour s as directed, Abilify 5 mg p.o. at bedtime, aspirin 81 mg p.o. daily (this medication needs to be st arted when cleared by neurosurgeon), Carbamazepine 200 mg p.o. t.i.d., Coreg 3.125 mg p.o. b.i.d., di clofenac 75 mg p.o. daily p.r.n., Depakote ER 250 mg p.o. daily, Cymbalta 30 mg p.o. b.i.d., gabapent in 300 mg p.o. t.i.d., hydrochlorothiazide 25 mg p.o. daily, metformin 250 mg at bedtime and 500 mg i n the morning, omeprazole 20 mg p.o. daily, MiraLax 17 grams p.o. daily p.r.n., Seroquel 100 mg p.o. at bedtime, trazodone 25 mg p.o. at bedtime, valsartan 80 mg p.o. b.i.d., Ambien 10 mg p.o. at bedtim e. CONTRAINDICATIONS: None. CODE STATUS: FULL CODE. INPATIENT CONSULTANTS: Dr. Andres Castillo was primary. Sound team was consulted for medical coma nagement. ALLERGIES: MORPHINE. DISCHARGE PLAN: Post hospital, the patient will follow up with Dr. Castillo. HOSPITAL COURSE: The patient is a 63-year-old female who has chronic low back pain. She had previou s back surgery and this time, patient was electively admitted by Dr. Castillo. Patient underwent exp loration of spinal fusion L5-S1, removal of hardware at L5-S1 and L3-L5 decompressive laminectomy. P ostoperatively, at surgical floor, Sound team was consulted for medical comanagement. We resumed the patient's all home medication while in hospital. Upon discharge, the patient will continue all her home medication except aspirin and that can be restarted when Neurology clears her. The patient remained medically stable. The patient is seen and examined at bedside today. REVIEW OF SYSTEMS: Reviewed and negative. PHYSICAL EXAMINATION: VITAL SIGNS: Today, temperature 98.2, pulse 84, respiratory rate 20, saturation 93% on room air, blo od pressure 123/69. GENERAL: The patient is currently alert, awake, no acute distress. HEAD: Normocephalic, atraumatic. EYES: Pupils round, reactive to light. Extraocular muscle intact. ENT: Oropharynx within normal limits. Moist mucous membranes. No oral lesion, no pharyngeal erythe ma, no exudate. NECK: Supple, no JVD, no thyromegaly, no carotid bruit. LUNGS: Clear to auscultation without any rhonchi or rales. CARDIAC: S1, S2 regular without any murmur. ABDOMEN: Soft and benign without any tenderness. EXTREMITIES: No edema. NEUROLOGIC: Nonfocal examination. BACK: Surgical site is clean and healthy. The patient is medically stable for discharge by primary team and we will sign off.
== END 2018-05-15 14:29 | disposition home or self-care (01) | DRG 460 ==
LOC: SURG A 05-14 06:50 → SURG B 05-14 13:20
PROVIDERS: ADMIT Neurological Surgery; ATTEND Neurological Surgery
PROC: 0SG10AJ Fusion of 2 or more Lumbar Vertebral Joints with Interbody Fusion Device, Posterior Approach, Anterior Column, Open Approach (ICD-10-PCS; principal; 2018-05-14)
PROC: 0SP304Z Removal of Internal Fixation Device from Lumbosacral Joint, Open Approach (ICD-10-PCS; 2018-05-14)
DX: M54.16 Radiculopathy, lumbar region (principal); Z88.6 Allergy status to analgesic agent; F41.8 Other specified anxiety disorders; K21.9 Gastro-esophageal reflux disease without esophagitis; E11.9 Type 2 diabetes mellitus without complications; E78.5 Hyperlipidemia, unspecified; F31.9 Bipolar disorder, unspecified; E66.9 Obesity, unspecified; Z68.33 Body mass index [BMI] 33.0-33.9, adult
CPT/HCPCS: 36416; 76001; 96374; A4216; C1713; C1768; J1170; J2250; J3010; J3370; J3490

== ENCOUNTER 2018-07-12 12:40 | Outpatient (CLI) | payer MEDICARE ==
--- NOTE | 2018-07-12 16:31 | RAD ---
TWO VIEWS LUMBAR SPINE: DATE: 07/12/2018. HISTORY: Other intervertebral disk disorder, lumbar region. Followup postoperative changes. COMPARISON: 05/29/2018. FINDINGS: Again noted are postsurgical changes related to posterior fusion of the L3-4 and L4-5 levels with bip edicular screws and posterior rods transfixing these levels. There are pedicular screws within the S 1 vertebral body bilaterally which were not transfixed by the posterior rods. Narrowing of the L3-4, L4-5, and L5-S1 intervertebral disk spaces is present. Laminotomy defect at L5 is again noted. No hardware complication is seen. Vertebral body heights are within normal limits. The skin clips seen posteriorly are no longer visualized. Multiple calcifications overlie the gluteal soft tissues post erior to the sacrum probably related to injection granulomata and/or heterotopic ossification. There are 2 intervertebral disk cages at the L5-S1 level also present on the prior exam. IMPRESSION: Stable postoperative changes of lumbar spine. POS: BAN
== END 2018-07-12 12:41 | disposition home or self-care (01) ==
LOC: TBSIIMAG 12:40
PROVIDERS: ATTEND Neurological Surgery
DX: M51.36 Other intervertebral disc degeneration, lumbar region (principal); Z98.1 Arthrodesis status
CPT/HCPCS: 72100

== ENCOUNTER 2018-12-13 13:00 | Outpatient (CLI) | payer MEDICARE ==
--- NOTE | 2018-12-13 15:56 | EKG ---
Test Reason : Blood Pressure : / mmHG Vent. Rate : 070 BPM Atrial Rate : 070 BPM P-R Int : 152 ms QRS Dur : 070 ms QT Int : 370 ms P-R-T Axes : 077 -31 075 degrees QTc Int : 399 ms Normal sinus rhythm Left axis deviation Septal infarct , age undetermined cannot be excluded Abnormal ECG Confirmed by LISBET ESTRADA ([id number]) on 12/13/2018 3:56:16 PM Referred By: SONNY Confirmed By:LISBET ESTRADA
== END 2018-12-13 13:01 | disposition home or self-care (01) ==
LOC: LABBT 13:00
PROVIDERS: ATTEND Orthopaedic Surgery
DX: Z01.818 Encounter for other preprocedural examination (principal); M17.11 Unilateral primary osteoarthritis, right knee
CPT/HCPCS: 87081; 93005; 93010

== ENCOUNTER 2018-12-19 10:09 | Outpatient (CLI) | payer MEDICARE ==
[2018-12-19 10:31] LABS: #Eosinphils 0.2 thou/uL (0.0-0.7); #Monocytes 0.7 thou/uL (0.11-0.59); #Neutrophils 3.4 thou/uL (1.40-6.50); %Lymphocytes 32.3 % (21.0-51.0); %Monocytes 10.9 % (0.0-10.0); %Neutrophils 53.8 % (42.0-75.0); Hemoglobin 12.8 g/dL (12.0-16.0); Mean Corpuscular HGB CONC 31.2 g/dL (32.0-36.0); Mean Platelet Volume 10.5 fL (7.4-10.4); Platelet Count 183 thou/uL (130-400); RBC Distribution Width 13.7 % (11.5-14.5); Red Blood Cell (RBC) Count 5.33 mill/uL (4.20-5.40); White Blood Cell (WBC) Count 6.2 thou/uL (4.8-10.8)
[2018-12-19 10:37] LABS: INR-International Normal Ratio 0.9; Prothrombin Time 12.1 SEC (12.0-14.7)
[2018-12-19 10:53] LABS: Anion Gap 11 mmol/L (10-20); BUN (Urea Nitrogen) 13 mg/dL (9.8-20.1); Calc. Creatinine Clearance 0 mL/min (70-130); Calcium 9.5 mg/dL (7.8-10.44); Carbon Dioxide 27 mmol/L (23-31); Chloride 105 mmol/L (98-107); Estimated GFR-MDRD 59; Glucose 200 mg/dL (80-115); Potassium 4.2 mmol/L (3.5-5.1); Sodium 139 mmol/L (136-145)
== END 2018-12-19 10:10 | disposition home or self-care (01) ==
LOC: LABBT 10:09
PROVIDERS: ATTEND Orthopaedic Surgery
DX: Z01.812 Encounter for preprocedural laboratory examination (principal); M17.11 Unilateral primary osteoarthritis, right knee
CPT/HCPCS: 80048; 85025; 85610

== ENCOUNTER 2018-12-25 06:09 | Inpatient (IN) | payer MEDICARE ==
[2018-12-13 13:18] VITALS: BMI 34.9
[2018-12-25] MEDS ORDERED: Tranexamic Acid 1,000 MG/10 ML VIAL ONE (06:58)
[2018-12-25] MEDS ORDERED: Sodium Chloride 0.9% 100 ML ONE (06:58)
[2018-12-25] MEDS ORDERED: Vancomycin HCl 1.5 GM in Sodium Chloride 0.9% 250 ML 300 ML IVPB SCH (07:15)
[2018-12-25] MEDS ORDERED: Fentanyl 100 MCG/2 ML VIAL ONE ×3 (07:55→10:59)
[2018-12-25] MEDS ORDERED: Midazolam HCl 2 mg/2 ml Vial ONE (07:55)
[2018-12-25] MEDS ORDERED: HYDROcodone/Acetaminophen 10/325 mg Tablet PO PRN (08:11)
[2018-12-25] MEDS ORDERED: traMADol HCl 50 MG TAB PO PRN (08:11)
[2018-12-25] MEDS ORDERED: Zolpidem Tartrate 5 MG TAB PO PRN ×2 (08:11→08:51)
[2018-12-25] MEDS ORDERED: Fentanyl 100 MCG/2 ML VIAL SLOW IVP PRN (08:11)
[2018-12-25] MEDS ORDERED: Ondansetron PF 4 MG/2 ML Vial IVP PRN ×2 (08:11→08:51)
[2018-12-25] MEDS ORDERED: Promethazine HCl 25 MG/ML VIAL IM PRN ×3 (08:11→10:48)
[2018-12-25] MEDS ORDERED: PHENYLEPHRINE-NS 100 MCG/ML 10 ML SYRINGE ONE (08:24)
[2018-12-25] MEDS ORDERED: PROPOFOL 200 MG/20 ML VIAL ONE (08:24)
[2018-12-25] MEDS ORDERED: Lidocaine 1% PF 5 ML VIAL ONE (08:24)
[2018-12-25] MEDS ORDERED: Ondansetron PF 4 MG/2 ML Vial ONE (08:24)
[2018-12-25] MEDS ORDERED: Acetaminophen 325 MG TAB PO PRN (08:51)
[2018-12-25] MEDS ORDERED: diphenhydrAMINE 25 MG CAP PO PRN (08:51)
[2018-12-25] MEDS ORDERED: Aspirin Chewable 81 MG TAB PO SCH (09:00)
[2018-12-25] MEDS: Carvedilol 6.25 MG TAB PO SCH ×2 (09:05→20:43)
[2018-12-25] MEDS ORDERED: Ropivacaine 0.2% HCl/PF (40 MG/20 ML VIAL) ONE (09:44)
[2018-12-25] MEDS ORDERED: Ropivacaine 0.5% HCl/PF (150 MG/30 ML VIAL) ONE (09:44)
[2018-12-25] MEDS ORDERED: Promethazine HCl 25 MG/ML VIAL SLOW IVP PRN (10:48)
[2018-12-25] MEDS ORDERED: Ondansetron HCl/PF 4 MG/2 ML Vial IVP PRN (10:48)
--- NOTE | 2018-12-25 11:14 | RAD ---
TWO VIEWS OF THE RIGHT KNEE: INDICATION: Postop right knee. COMPARISON: Prior exam dated 05/08/2017. FINDINGS: There has been interval placement of a right total knee prosthesis. Prosthetic component projects in the expected position. There is scattered intraarticular and periventricular soft tissue gas consis tent with patient's recent postoperative state. IMPRESSION: Postoperative right knee. POS: KULDIP
--- NOTE | 2018-12-25 11:15 | OP ---
DATE OF PROCEDURE: 12/25/2018 PREOPERATIVE DIAGNOSIS: End-stage tricompartmental osteoarthritis, right knee. POSTOPERATIVE DIAGNOSIS: End-stage tricompartmental osteoarthritis, right knee. PROCEDURE PERFORMED: Cemented cruciate sparing computer-assisted navigated right total knee arthroplasty. BLEMISH REMOVER: Anthony Viveros PA-C ANESTHESIA: General via LMA augmented with single shot anterior sciatic augmented block with indwelling adductor canal block on the right. COMPONENTS USED: [employer] triathlon primary size 4 cemented cruciate sparing femoral component with a size 4 primary cemented tibial base plate, 9 mm polyethylene fixed-bearing insert, and A29 patella button. TOURNIQUET TIME: 54 minutes at 300 mmHg. ESTIMATED BLOOD LOSS: Less than 100. INPUT: 1200 mL of crystalloid. OUTPUT: 200 mL of clear yellow urine. DRAINS: None. SPECIMENS: None. COMPLICATIONS: None. COUNTS: Correct. INDICATIONS FOR SURGERY: Leia is a 63-year-old female, who has had progressive right knee pain and problem with standing and walking for the last 5 to 7 years. She has failed conservative management and elected to proceed with total knee arthroplasty as definitive treatment of her pain. PROCEDURE IN DETAIL: After informed consent was obtained in the preoperative holding area, the patient was taken to the operative suite where general anesthesia was induced. Once adequate level of general anesthesia was obtained, the patient was positioned and a well-padded tourniquet was placed around the right proximal thigh. The right lower extremity was then prepped and draped in the usual sterile fashion. Prior to exsanguination, a time-out was called and all members of the surgical team agreed upon site, surgeon, and patient. The extremity was then exsanguinated and the tourniquet was raised. A midline longitudinal incision was then made directly over the patella extending 2 fingerbreadths above the superior pole of the patella and 2 fingerbreadths inferior to the inferior patellar pole of the patella. Deeper subcutaneous layers were dissected sharply and local bleeding was controlled with Bovie electrocautery. A quad tendon longitudinal split was then made sharply and a median parapatellar arthrotomy was carried out both sharp and with Bovie electrocautery, carried down to 1 fingerbreadth medial to the tibial tubercle. The knee was then placed into flexion and the patella was everted nicely, and a copious fat pad ectomy was performed, allowing for greater exposure of the tibia. The computer-assisted distal femoral fiducial was then placed and pinned firmly, and the distal femoral cutting guide was pinned firmly into place. The oscillating saw was then used to remove the appropriate amount of bone. The 4-in-1 cutting block was then placed on the distal femur and the oscillating saw was used to remove the appropriate amount of bone off the anterior, posterior, and chamfer cuts. After completion of bone cuts, the anterior cruciate ligament was resected sharply and the posterior cruciate ligament retractor was placed and the tibia was subluxed for better exposure. Partial meniscectomies were carried out, and the tibial computer-assisted fiducial was pinned, and the cutting guide was placed. Oscillating saw was then used to remove the bone, with Hohmann retractors used to take care and protect the collateral ligaments. After the tibial resection was performed, a laminar special delivery messenger was placed in between the freshened bone cuts. The knee placed at 90 degrees and further bilateral meniscectomies were carried out, and the curved osteotome and curettage were used to remove any excess bone spurs in the posterior compartment. The trial femoral component, tibial baseplate were placed with the appropriate polyethylene trial insert with an appropriate polyethylene spacer and patellar button. The knee was taken through full range of motion with flexion and extension from 0 to 90 degrees and patellar broach squarely in the trochlea without any squinting or subluxation noted. The knee was also stable to varus and valgus stressing at 0, 15, 45, and 90 degrees of flexion. The drawer was negative. All trial components were then removed and the keel punch was used to provide the appropriate defect in the tibia with a mallet. The freshened bone cuts were copiously irrigated with pulsatile lavage of about 1.5 L to remove all excess debris. The freshened bone cuts were then dried with suction and lap sponge. The knee was placed in flexion and retractors were placed to provide access to all bone cuts. Tobramycin-impregnated methyl methacrylate cement was then placed on the freshened bone cuts and implants which were malleted firmly into place. Curettage and Spencer elevators were used to remove any excess bone cement. The knee was placed into full extension and the patellar button was placed under compression, and the cement was allowed to cure. Once completed, the components were again taken through full range of motion and copious irrigation of the knee was carried out with another liter of normal saline. All components were inspected fully with full range of motion and varus and valgus stressing. There was no laxity noted and full extension was observed clinically. Primary closure was accomplished with #2 interrupted Vicryl stitch of the arthrotomy defect. This was oversewn with a #2 running Quill barbed stitch. The subcutaneous layer was then closed with a running 0 barbed Monocryl stitch and skin closure accomplished with a running subcuticular 3-0 Monocryl barbed Quill stitch and augmented with cement on the skin. Tourniquet was lowered. Good spontaneous return of distal pulses was noted clinically and a sterile dressing was applied to the incision. The procedure was terminated without any complications. The patient was awakened in the operative suite and taken to the recovery room in stable condition. Job ID: [id number]
[2018-12-25] MEDS: Gabapentin 300 MG CAP PO SCH ×3 (11:21→20:45)
[2018-12-25] MEDS: carBAMazepine 200 MG TAB PO SCH ×3 (11:21→20:45)
[2018-12-25] MEDS: Aspirin 81 mg Enteric Coated Tablet PO SCH ×2 (11:21→20:42)
[2018-12-25] MEDS: Chlorthalidone 25 MG TAB PO SCH (11:28)
[2018-12-25] MEDS: DULoxetine 30 MG CAP PO SCH (12:30)
[2018-12-25] MEDS: Ketorolac Tromethamine 30 MG/ML VIAL IVP SCH ×3 (12:30→23:29)
[2018-12-25] MEDS: HYDROcodone/Acetaminophen 10/325 mg Tablet PO PRN ×3 (14:02→23:31)
[2018-12-25] MEDS ORDERED: PROVENTIL INHALER 6.7 G (200 INHALATIONS) INH PRN (15:00)
[2018-12-25] MEDS: CEFAZOLIN 2 GM in Premix Bag 1 BAG IVPB SCH ×2 (16:42→22:01)
[2018-12-25] MEDS: metFORMIN 500 MG TAB PO SCH (16:43)
[2018-12-25] MEDS: Sodium Chloride 0.9% 1,000 ML IV SCH (16:50)
[2018-12-25] MEDS ORDERED: Dextrose 50% Abboject 50 ML SYRINGE SLOW IVP PRN (17:17)
[2018-12-25] MEDS ORDERED: Dextrose 5% in Water 1,000 ML IV PRN (17:17)
[2018-12-25] MEDS ORDERED: HumaLOG 300 UNITS/3 ML VIAL SC PRN (17:17)
--- NOTE | 2018-12-25 17:21 | PDOC.PN ---
- Subjective Encounter Start Date: 12/25/18 Encounter Start Time: 17:05 Subjective: Consult for med mgmt. s/p R TKA. Reviewed all hx, labs, x-rays and EKG's -: States feeling ok overall with mild pain. - Objective MAR Reviewed: Yes Vital Signs & Weight: Vital Signs (12 hours) Temp Pulse Resp BP 12/25/18 11:45 98.7 F 64 18 143/84 H Weight Weight 210 lb I&O: 12/24/18 12/25/18 12/26/18 06:59 06:59 06:59 Intake Total 1200 Output Total 550 Balance 650 Additional Labs: Laboratory Tests 07/17/18 12/19/18 12/19/18 09:57 10:13 10:15 WBC 6.2 Hgb 12.8 Hct 41.0 Plt Count 183 BUN 13 Creatinine 1.12 H Estimated GFR (MDRD) 59 Hemoglobin A1c 6.5 H EKG Reviewed by me: Yes (EKG - NSR, LAD, attentuated R-wave progression) Phys Exam - Physical Examination Constitutional: NAD HEENT: PERRLA, sclera anicteric, oral pharynx no lesions Neck: no nodes, no JVD, supple, full ROM Respiratory: no wheezing, no rales, no rhonchi, clear to auscultation bilateral S1, S2 Cardiovascular: RRR, no significant murmur, no rub, gallop Gastrointestinal: soft, non-tender, no distention, positive bowel sounds R knee with edema and surgical dressing in place Musculoskeletal: pulses present Neurological: normal sensation, moves all 4 limbs Psychiatric: A&O x 3 Skin: normal turgor, cap refill <2 seconds Dx/Plan (1) Diabetes type 2, controlled Code(s): E11.9 - TYPE 2 DIABETES MELLITUS WITHOUT COMPLICATIONS Status: Chronic Comment: ISS, Metformin, serial accuchecks, ADA (2) Hypertension Code(s): I10 - ESSENTIAL (PRIMARY) HYPERTENSION Status: Chronic Qualifiers: Hypertension type: essential hypertension Qualified Code(s): I10 - Essential (primary) hypertension Comment: Continue Coreg and Olmesartan, serial BP monitoring (3) Bipolar disorder Code(s): F31.9 - BIPOLAR DISORDER, UNSPECIFIED Status: Chronic Comment: Continue Cymbalta and Carbamezapine (4) CKD (chronic kidney disease), stage III Code(s): N18.3 - CHRONIC KIDNEY DISEASE, STAGE 3 (MODERATE) Status: Chronic Comment: Avoid nephrotoxic meds and limit contrast exposure - Plan continue antibiotics, PT/OT, social services counselor, out of bed/ambulate, DVT proph w/ SCDs Stable currently -: Continue Benicar/Coreg -: Pain control -: ASA 81mg BID -: Add ISS * Joint U protocol * AM lab: BMP, CBC * Inpt Rehab options * Thank you for the consult. Will continue to follow with primary service.
[2018-12-25] MEDS: traZODone HCl 50 MG TAB PO SCH (20:42)
[2018-12-25] MEDS: Aripiprazole 10 MG TAB PO SCH (20:43)
[2018-12-25] MEDS: Zolpidem Tartrate 5 MG TAB PO SCH (20:51)
[2018-12-26] MEDS: HYDROcodone/Acetaminophen 10/325 mg Tablet PO PRN ×5 (03:59→22:23)
[2018-12-26] MEDS: Sodium Chloride 0.9% 1,000 ML IV SCH ×3 (04:00→15:34)
[2018-12-26] MEDS: Ketorolac Tromethamine 30 MG/ML VIAL IVP SCH ×4 (05:31→23:35)
[2018-12-26 06:20] LABS: Hemoglobin 11.4 g/dL (12.0-16.0); Mean Corpuscular HGB CONC 30.4 g/dL (32.0-36.0); Mean Corpuscular Hemoglobin 23.8 pg (27.0-31.0); Mean Corpuscular Volume 78.3 fL (78.0-98.0); Mean Platelet Volume 10.6 fL (7.4-10.4); Platelet Count 151 thou/uL (130-400); Red Blood Cell (RBC) Count 4.77 mill/uL (4.20-5.40); White Blood Cell (WBC) Count 8.9 thou/uL (4.8-10.8)
[2018-12-26 07:16] LABS: Anion Gap 13 mmol/L (10-20); BUN (Urea Nitrogen) 15 mg/dL (9.8-20.1); Calc. Creatinine Clearance 108 mL/min (70-130); Carbon Dioxide 23 mmol/L (23-31); Chloride 105 mmol/L (98-107); Estimated GFR-MDRD 88; Potassium 4.5 mmol/L (3.5-5.1); Sodium 136 mmol/L (136-145)
[2018-12-26 07:17] LABS: Calcium 8.5 mg/dL (7.8-10.44); Glucose 171 mg/dL (80-115)
[2018-12-26] MEDS: metFORMIN XR 500 MG TAB PO SCH (08:33)
[2018-12-26] MEDS: Gabapentin 300 MG CAP PO SCH ×3 (08:33→20:43)
[2018-12-26] MEDS: carBAMazepine 200 MG TAB PO SCH ×3 (08:33→20:44)
[2018-12-26] MEDS: Ferrous Gluconate 324 MG TAB PO SCH ×2 (08:33→16:27)
[2018-12-26] MEDS: DULoxetine 30 MG CAP PO SCH (08:33)
[2018-12-26] MEDS: Carvedilol 6.25 MG TAB PO SCH ×2 (08:34→20:43)
[2018-12-26] MEDS: Multivitamin W/ Minerals 1 TAB PO SCH (08:35)
[2018-12-26] MEDS: Aspirin 81 mg Enteric Coated Tablet PO SCH ×2 (08:35→20:42)
[2018-12-26] MEDS: Chlorthalidone 25 MG TAB PO SCH (09:00)
--- NOTE | 2018-12-26 09:35 | PRG ---
DATE OF SERVICE: 12/26/2018 SUBJECTIVE: Ms. Dupree is a 63-year-old female who is postop day #1 from right total knee arthroplasty. She is doing very well. I believe she has been planning for a skilled bed stay due to her difficulties with ADLs currently. OBJECTIVE: VITAL SIGNS: Temperature 91, pulse 86, respiratory rate 20, nonlabored, O2 saturation 100% on room air, blood pressure is 117/69. GENERAL: She is alert and oriented to person, place, time, situation, grossly nonfocal. EXTREMITIES: Incision is clean. No strike through. Neurovascular: Intact in the involved extremity. LABORATORY DATA: Hemoglobin, hematocrit 11.4 and 37.4. IMPRESSION: A 63-year-old female, postoperative day #1 right total knee arthroplasty, doing well. PLAN: Continue current care. Swing bed transfer on . Job ID: [id number]
--- NOTE | 2018-12-26 11:01 | PDOC.PN ---
- Subjective Encounter Start Date: 12/26/18 Encounter Start Time: 08:30 -: old records requested/rev Patient seen and examined. No new complaints. No overnight events - Objective Resuscitation Status - Order Detail: 12/26/18 07:15 Resuscitation Status Routine Resuscitation Status: FULL: Full Resuscitation MAR Reviewed: Yes Vital Signs & Weight: Vital Signs (12 hours) Temp Pulse Resp BP Pulse Ox 12/26/18 07:51 98.5 F 70 16 133/74 92 L 12/26/18 03:22 97.7 F 85 20 133/76 98 12/26/18 00:51 97.7 F 75 20 131/75 100 Weight Weight 210 lb I&O: 12/25/18 12/26/18 12/27/18 06:59 06:59 06:59 Intake Total 1200 2160 Output Total 550 1025 Balance 650 1135 Result Diagrams: 12/26/18 05:53 12/26/18 05:53 Additional Labs: Accuchecks 12/26/18 12/25/18 05:56 21:19 POC Glucose 186 H 229 H Radiology Reviewed by me: Yes EKG Reviewed by me: Yes Phys Exam - Physical Examination Constitutional: NAD HEENT: PERRLA, moist MMs, sclera anicteric Neck: no JVD, supple Respiratory: no wheezing, no rales, no rhonchi Cardiovascular: RRR, no significant murmur, no rub Gastrointestinal: soft, non-tender, no distention, positive bowel sounds Musculoskeletal: no edema, pulses present right knee with dressing, nerve block in place Neurological: non-focal, normal sensation, moves all 4 limbs Lymphatic: no nodes Psychiatric: normal affect, A&O x 3 Skin: no rash, normal turgor Dx/Plan (1) Anemia, normocytic normochromic Code(s): D64.9 - ANEMIA, UNSPECIFIED Status: Acute (2) Status post total right knee replacement Code(s): Z96.651 - PRESENCE OF RIGHT ARTIFICIAL KNEE JOINT Status: Acute (3) Anxiety and depression Code(s): F41.9 - ANXIETY DISORDER, UNSPECIFIED; F32.9 - MAJOR DEPRESSIVE DISORDER, SINGLE EPISODE, UNSPECIFIED Status: Chronic Comment: resume home medication, seroquel, abilify, cymbalta (4) Bipolar disorder Code(s): F31.9 - BIPOLAR DISORDER, UNSPECIFIED Status: Chronic Comment: Continue Cymbalta and Carbamezapine (5) CKD (chronic kidney disease), stage III Code(s): N18.3 - CHRONIC KIDNEY DISEASE, STAGE 3 (MODERATE) Status: Chronic Comment: Avoid nephrotoxic meds and limit contrast exposure (6) Diabetes type 2, controlled Code(s): E11.9 - TYPE 2 DIABETES MELLITUS WITHOUT COMPLICATIONS Status: Chronic Comment: ISS, Metformin, serial accuchecks, ADA (7) Dyslipidemia Code(s): E78.5 - HYPERLIPIDEMIA, UNSPECIFIED Status: Chronic (8) GERD (gastroesophageal reflux disease) Code(s): K21.9 - GASTRO-ESOPHAGEAL REFLUX DISEASE WITHOUT ESOPHAGITIS Status: Chronic Comment: resume protonix (9) Hypertension Code(s): I10 - ESSENTIAL (PRIMARY) HYPERTENSION Status: Chronic Qualifiers: Hypertension type: essential hypertension Qualified Code(s): I10 - Essential (primary) hypertension Comment: Continue Coreg and Olmesartan, serial BP monitoring (10) Obesity (BMI 30.0-34.9) Code(s): E66.9 - OBESITY, UNSPECIFIED Status: Chronic - Plan cont current plan of care, plan discussed w/ family, PT/OT * medication reviewed as below * symptomatic treatment * stable medically * nerve block as per anesthesia * full code * aspirin for DVT prophylaxis * pain controlled * discharge as per primary. * may need rehab. Review of Systems - Review of Systems ENT: negative: Ear Pain, Ear Discharge, Nose Pain, Nose Discharge, Nose Congestion, Mouth Pain, Mouth Swelling, Throat Pain, Throat Swelling, Other Respiratory: negative: Cough, Dry, Shortness of Breath, Hemoptysis, SOB with Excertion, Pleuritic Pain, Sputum, Wheezing Cardiovascular: negative: chest pain, palpitations, orthopnea, paroxysmal nocturnal dyspnea, edema, light headedness, other Gastrointestinal: negative: Nausea, Vomiting, Abdominal Pain, Diarrhea, Constipation, Melena, Hematochezia, Other Genitourinary: negative: Dysuria, Frequency, Incontinence, Hematuria, Retention , Other Musculoskeletal: negative: Neck Pain, Shoulder Pain, Arm Pain, Back Pain, Hand Pain, Leg Pain, Foot Pain, Other Skin: negative: Rash, Lesions, Nba, Bruising, Other - Medications/Allergies Allergies/Adverse Reactions: Allergies Allergy/AdvReac Type Severity Reaction Status Date / Time morphine Allergy rash, Verified 12/25/18 14:51 hallucinations oxycodone Allergy Verified 12/25/18 14:51 Medications: Current Medications Acetaminophen (Tylenol) 650 mg PO Q4H PRN PRN Reason: Headache/Fever or Pain Hydrocodone Bitart/Acetaminophen ([place] 10/325) 1 tab PO Q4H PRN PRN Reason: Pain (1-3) Hydrocodone Bitart/Acetaminophen ([place] 10/325) 2 tab PO Q4H PRN PRN Reason: PAIN (4-6) Last Admin: 12/26/18 08:30 Dose: 2 tab Albuterol Sulfate (Proventil Hfa) 2 puff INH TID PRN PRN Reason: Dyspnea Aripiprazole (Abilify) 5 mg PO HS [facility] Last Admin: 12/25/18 20:43 Dose: 5 mg Aspirin (Ecotrin) 81 mg PO BID [facility] Last Admin: 12/26/18 08:35 Dose: 81 mg Carbamazepine (Tegretol) 200 mg PO TID [facility] Last Admin: 12/26/18 08:33 Dose: 200 mg Carvedilol (Coreg) 6.25 mg PO BID [facility] Last Admin: 12/26/18 08:34 Dose: 6.25 mg Chlorthalidone (Hygroton) 25 mg PO DAILY [facility] Last Admin: 12/25/18 11:28 Dose: Not Given Dextrose/Water (Dextrose 50%) 25 gm SLOW IVP PRN PRN PRN Reason: Hypoglycemia Diphenhydramine HCl (Benadryl) 25 mg PO Q6H PRN PRN Reason: Itching Duloxetine HCl (Cymbalta) 30 mg PO DAILY [facility] Last Admin: 12/26/18 08:33 Dose: 30 mg Fentanyl (Sublimaze) 50 mcg SLOW IVP Q1H PRN PRN Reason: breakthrough pain Ferrous Gluconate (Fergon) 324 mg PO BID-[facility] Last Admin: 12/26/18 08:33 Dose: 324 mg Gabapentin (Neurontin) 300 mg PO TID [facility] Last Admin: 12/26/18 08:33 Dose: 300 mg Glucagon (Glucagon) 1 mg IM PRN PRN PRN Reason: Hypoglycemia Ropivacaine 250 ml/ Device 250 mls @ 10 mls/hr NERVE BLCK INF [facility] Sodium Chloride (Normal Saline 0.9%) 1,000 mls @ 100 mls/hr IV .Q10H [facility] Last Admin: 12/26/18 05:31 Dose: 1,000 mls Dextrose/Water (D5w) 1,000 mls @ 0 mls/hr IV .Q0M PRN PRN Reason: Hypoglycemia Insulin Human Lispro (Humalog) 0 units SC .MILD SLIDING SCALE PRN PRN Reason: Mild Correctional Scale Insulin Human Lispro (Humalog) 0 units SC .BEDTIME SLIDING SC PRN PRN Reason: Bedtime Correctional Scale Last Admin: 12/25/18 22:01 Dose: 2 unit Iron/Minerals/Multivitamins (Theragran M) 1 tab PO DAILY [facility] Last Admin: 12/26/18 08:35 Dose: 1 tab Ketorolac Tromethamine (Toradol) 15 mg IVP Q6HR [facility] Stop: 12/27/18 06:01 Last Admin: 12/26/18 05:31 Dose: 15 mg Metformin HCl (Glucophage) 250 mg PO Q-[facility] Last Admin: 12/25/18 16:43 Dose: 250 mg Metformin HCl (Glucophage Xr) 500 mg PO QAM-[facility] Last Admin: 12/26/18 08:33 Dose: 500 mg Olmesartan (Benicar) 40 mg PO DAILY [facility] Last Admin: 12/26/18 08:34 Dose: 40 mg Ondansetron HCl (Zofran) 4 mg IVP Q6H PRN PRN Reason: Nausea/Vomiting Pantoprazole Sodium (Protonix) [facility] Last Admin: 12/26/18 08:33 Dose: 40 mg Promethazine HCl (Phenergan) 12.5 mg IM Q4H PRN PRN Reason: Nausea/Vomiting Senna/Docusate Sodium (Senokot S) 2 tab PO BID [facility] Sodium Chloride (Flush - Normal Saline) 10 ml IVF PRN PRN PRN Reason: Saline Flush Tramadol HCl (Ultram) 50 mg PO Q6H PRN PRN Reason: Mild Pain (1-3) Tramadol HCl (Ultram) 100 mg PO Q6H PRN PRN Reason: Moderate Pain 4-6 Trazodone HCl (Desyrel) 25 mg PO [facility] Last Admin: 12/25/18 20:42 Dose: 25 mg Zolpidem Tartrate (Ambien) 10 mg PO [facility] Last Admin: 12/25/18 20:51 Dose: 10 mg
[2018-12-26] MEDS: Ropivacaine HCl/PF 250 ML in Premix Bag 1 BAG NERVE BLCK SCH (12:44)
[2018-12-26] MEDS: Senokot S 8.6-50 MG TAB PO SCH ×2 (15:07→20:43)
[2018-12-26] MEDS: metFORMIN 500 MG TAB PO SCH (16:27)
[2018-12-26] MEDS: Aripiprazole 10 MG TAB PO SCH (20:41)
[2018-12-26] MEDS: Zolpidem Tartrate 5 MG TAB PO SCH (20:42)
[2018-12-26] MEDS: traZODone HCl 50 MG TAB PO SCH (20:44)
[2018-12-27 04:59] LABS: Hemoglobin 10.6 g/dL (12.0-16.0); Mean Corpuscular HGB CONC 31.2 g/dL (32.0-36.0); Mean Corpuscular Hemoglobin 24.4 pg (27.0-31.0); Mean Corpuscular Volume 78.3 fL (78.0-98.0); Mean Platelet Volume 11.3 fL (7.4-10.4); Platelet Count 142 thou/uL (130-400); Red Blood Cell (RBC) Count 4.34 mill/uL (4.20-5.40); White Blood Cell (WBC) Count 9.2 thou/uL (4.8-10.8)
[2018-12-27] MEDS: Ketorolac Tromethamine 30 MG/ML VIAL IVP SCH (05:39)
[2018-12-27] MEDS: Sodium Chloride 0.9% 1,000 ML IV SCH ×3 (05:41→23:16)
[2018-12-27] MEDS: HYDROcodone/Acetaminophen 10/325 mg Tablet PO PRN ×4 (07:50→20:39)
[2018-12-27] MEDS: metFORMIN XR 500 MG TAB PO SCH (08:47)
[2018-12-27] MEDS: Ferrous Gluconate 324 MG TAB PO SCH ×2 (08:47→18:01)
[2018-12-27] MEDS: carBAMazepine 200 MG TAB PO SCH ×3 (08:48→20:40)
[2018-12-27] MEDS: Gabapentin 300 MG CAP PO SCH ×3 (08:48→20:42)
[2018-12-27] MEDS: DULoxetine 30 MG CAP PO SCH (08:49)
[2018-12-27] MEDS: Carvedilol 6.25 MG TAB PO SCH ×2 (08:49→20:40)
[2018-12-27] MEDS: Multivitamin W/ Minerals 1 TAB PO SCH (08:49)
[2018-12-27] MEDS: Aspirin 81 mg Enteric Coated Tablet PO SCH ×2 (08:50→20:43)
[2018-12-27] MEDS: Chlorthalidone 25 MG TAB PO SCH (08:51)
[2018-12-27] MEDS: Senokot S 8.6-50 MG TAB PO SCH ×2 (08:59→20:38)
--- NOTE | 2018-12-27 09:51 | PDOC.PN ---
- Subjective Encounter Start Date: 12/27/18 Encounter Start Time: 08:10 Patient seen and examined. No new complaints. No overnight events - Objective Resuscitation Status - Order Detail: 12/26/18 07:15 Resuscitation Status Routine Resuscitation Status: FULL: Full Resuscitation MAR Reviewed: Yes Vital Signs & Weight: Vital Signs (12 hours) Temp Pulse Resp BP BP Pulse Ox 12/27/18 08:49 162/80 H 12/27/18 08:17 98.3 F 80 16 162/80 H 92 L 12/27/18 04:05 99.1 F 83 20 150/79 H 92 L Weight Admit Weight 210 lb Weight 210 lb I&O: 12/26/18 12/27/18 12/28/18 06:59 06:59 06:59 Intake Total 1200 3160 600 Output Total 550 2125 Balance 650 1035 600 Result Diagrams: 12/27/18 03:57 12/26/18 05:53 Additional Labs: Accuchecks 12/27/18 12/26/18 12/26/18 05:53 22:17 15:54 POC Glucose 149 H 159 H 143 H Phys Exam - Physical Examination Constitutional: NAD HEENT: PERRLA, moist MMs, sclera anicteric Neck: no JVD, supple Respiratory: no wheezing, no rales, no rhonchi Cardiovascular: RRR, no significant murmur, no rub Gastrointestinal: soft, non-tender, no distention, positive bowel sounds Musculoskeletal: no edema, pulses present Neurological: non-focal, normal sensation, moves all 4 limbs Lymphatic: no nodes Psychiatric: normal affect, A&O x 3 Skin: no rash, normal turgor Dx/Plan (1) Anemia, normocytic normochromic Code(s): D64.9 - ANEMIA, UNSPECIFIED Status: Acute (2) Status post total right knee replacement Code(s): Z96.651 - PRESENCE OF RIGHT ARTIFICIAL KNEE JOINT Status: Acute (3) Anxiety and depression Code(s): F41.9 - ANXIETY DISORDER, UNSPECIFIED; F32.9 - MAJOR DEPRESSIVE DISORDER, SINGLE EPISODE, UNSPECIFIED Status: Chronic Comment: resume home medication, seroquel, abilify, cymbalta (4) Bipolar disorder Code(s): F31.9 - BIPOLAR DISORDER, UNSPECIFIED Status: Chronic Comment: Continue Cymbalta and Carbamezapine (5) CKD (chronic kidney disease), stage III Code(s): N18.3 - CHRONIC KIDNEY DISEASE, STAGE 3 (MODERATE) Status: Chronic Comment: Avoid nephrotoxic meds and limit contrast exposure (6) Diabetes type 2, controlled Code(s): E11.9 - TYPE 2 DIABETES MELLITUS WITHOUT COMPLICATIONS Status: Chronic Comment: ISS, Metformin, serial accuchecks, ADA (7) Dyslipidemia Code(s): E78.5 - HYPERLIPIDEMIA, UNSPECIFIED Status: Chronic (8) GERD (gastroesophageal reflux disease) Code(s): K21.9 - GASTRO-ESOPHAGEAL REFLUX DISEASE WITHOUT ESOPHAGITIS Status: Chronic Comment: resume protonix (9) Hypertension Code(s): I10 - ESSENTIAL (PRIMARY) HYPERTENSION Status: Chronic Qualifiers: Hypertension type: essential hypertension Qualified Code(s): I10 - Essential (primary) hypertension Comment: Continue Coreg and Olmesartan, serial BP monitoring (10) Obesity (BMI 30.0-34.9) Code(s): E66.9 - OBESITY, UNSPECIFIED Status: Chronic - Plan cont current plan of care, PT/OT, psychosocial rehabilitation counselor * medication reviewed as below * symptomatic treatment * stable medically * nerve block as per anesthesia * aspirin for DVT prophylaxis * pain controlled * discharge as per primary. * may need rehab.. Review of Systems - Review of Systems ENT: negative: Ear Pain, Ear Discharge, Nose Pain, Nose Discharge, Nose Congestion, Mouth Pain, Mouth Swelling, Throat Pain, Throat Swelling, Other Respiratory: negative: Cough, Dry, Shortness of Breath, Hemoptysis, SOB with Excertion, Pleuritic Pain, Sputum, Wheezing Cardiovascular: negative: chest pain, palpitations, orthopnea, paroxysmal nocturnal dyspnea, edema, light headedness, other Gastrointestinal: negative: Nausea, Vomiting, Abdominal Pain, Diarrhea, Constipation, Melena, Hematochezia, Other Genitourinary: negative: Dysuria, Frequency, Incontinence, Hematuria, Retention , Other Musculoskeletal: negative: Neck Pain, Shoulder Pain, Arm Pain, Back Pain, Hand Pain, Leg Pain, Foot Pain, Other - Medications/Allergies Allergies/Adverse Reactions: Allergies Allergy/AdvReac Type Severity Reaction Status Date / Time morphine Allergy rash, Verified 12/25/18 14:51 hallucinations oxycodone Allergy Verified 12/25/18 14:51 Medications: Current Medications Acetaminophen (Tylenol) 650 mg PO Q4H PRN PRN Reason: Headache/Fever or Pain Hydrocodone Bitart/Acetaminophen ([place] 10/325) 1 tab PO Q4H PRN PRN Reason: Pain (1-3) Hydrocodone Bitart/Acetaminophen ([place] 10/325) 2 tab PO Q4H PRN PRN Reason: PAIN (4-6) Last Admin: 12/27/18 07:50 Dose: 2 tab Albuterol Sulfate (Proventil Hfa) 2 puff INH TID PRN PRN Reason: Dyspnea Aripiprazole (Abilify) 5 mg PO HS [facility] Last Admin: 12/26/18 20:41 Dose: 5 mg Aspirin (Ecotrin) 81 mg PO BID [facility] Last Admin: 12/27/18 08:50 Dose: 81 mg Carbamazepine (Tegretol) 200 mg PO TID [facility] Last Admin: 12/27/18 08:48 Dose: 200 mg Carvedilol (Coreg) 6.25 mg PO BID [facility] Last Admin: 12/27/18 08:49 Dose: 6.25 mg Chlorthalidone (Hygroton) 25 mg PO DAILY [facility] Last Admin: 12/27/18 08:51 Dose: Not Given Dextrose/Water (Dextrose 50%) 25 gm SLOW IVP PRN PRN PRN Reason: Hypoglycemia Diphenhydramine HCl (Benadryl) 25 mg PO Q6H PRN PRN Reason: Itching Duloxetine HCl (Cymbalta) 30 mg PO DAILY [facility] Last Admin: 12/27/18 08:49 Dose: 30 mg Fentanyl (Sublimaze) 50 mcg SLOW IVP Q1H PRN PRN Reason: breakthrough pain Ferrous Gluconate (Fergon) 324 mg PO BID-[facility] Last Admin: 12/27/18 08:47 Dose: 324 mg Gabapentin (Neurontin) 300 mg PO TID [facility] Last Admin: 12/27/18 08:48 Dose: 300 mg Glucagon (Glucagon) 1 mg IM PRN PRN PRN Reason: Hypoglycemia Ropivacaine 250 ml/ Device 250 mls @ 10 mls/hr NERVE BLCK INF [facility] Last Admin: 12/26/18 12:44 Dose: 250 mls Sodium Chloride (Normal Saline 0.9%) 1,000 mls @ 100 mls/hr IV .Q10H [facility] Last Admin: 12/27/18 05:41 Dose: Not Given Dextrose/Water (D5w) 1,000 mls @ 0 mls/hr IV .Q0M PRN PRN Reason: Hypoglycemia Insulin Human Lispro (Humalog) 0 units SC .MILD SLIDING SCALE PRN PRN Reason: Mild Correctional Scale Insulin Human Lispro (Humalog) 0 units SC .BEDTIME SLIDING SC PRN PRN Reason: Bedtime Correctional Scale Last Admin: 12/25/18 22:01 Dose: 2 unit Iron/Minerals/Multivitamins (Theragran M) 1 tab PO DAILY [facility] Last Admin: 12/27/18 08:49 Dose: 1 tab Metformin HCl (Glucophage) 250 mg PO QPM-[facility] Last Admin: 12/26/18 16:27 Dose: 250 mg Metformin HCl (Glucophage Xr) 500 mg PO QAM-[facility] Last Admin: 12/27/18 08:47 Dose: 500 mg Olmesartan (Benicar) 40 mg PO DAILY [facility] Last Admin: 12/27/18 08:49 Dose: 40 mg Ondansetron HCl (Zofran) 4 mg IVP Q6H PRN PRN Reason: Nausea/Vomiting Pantoprazole Sodium (Protonix) 40 mg PO QAM [facility] Last Admin: 12/27/18 08:48 Dose: 40 mg Promethazine HCl (Phenergan) 12.5 mg IM Q4H PRN PRN Reason: Nausea/Vomiting Senna/Docusate Sodium (Senokot S) 2 tab PO BID [facility] Last Admin: 12/27/18 08:59 Dose: Not Given Sodium Chloride (Flush - Normal Saline) 10 ml IVF PRN PRN PRN Reason: Saline Flush Tramadol HCl (Ultram) 50 mg PO Q6H PRN PRN Reason: Mild Pain (1-3) Tramadol HCl (Ultram) 100 mg PO Q6H PRN PRN Reason: Moderate Pain 4-6 Trazodone HCl (Desyrel) 25 mg PO HS [facility] Last Admin: 12/26/18 20:44 Dose: 25 mg Zolpidem Tartrate (Ambien) 10 mg PO [facility] Last Admin: 12/26/18 20:42 Dose: 10 mg
--- NOTE | 2018-12-27 10:04 | PRG ---
DATE OF SERVICE: 12/27/2018 SUBJECTIVE: Leia is a 63-year-old -[place] female who is postop day 2 from right total knee arthroplasty. She is doing relatively well, but she has been slow at ambulatory progress to include distances up to about 30 feet and difficulty with activities of daily living. We have decided for a swing bed consult or skilled placement. OBJECTIVE: VITAL SIGNS: Temperature 98.3, pulse 80, blood pressure 162/80, respiratory rate 16, nonlabored, and O2 saturation 92% on room air. GENERAL: She is alert and oriented to person, place, time, situation, grossly nonfocal. EXTREMITIES: Incision is clean, close. She is neurovascularly intact in both lower extremities. There is no strike through in the dressing. LABORATORY DATA: Hemoglobin and hematocrit 10.6 and 34. IMPRESSION: A 63-year-old female, postop day 2, right total knee arthroplasty. Doing okay in terms of pain, but slow at ADLs and independence and milestones for ambulatory goals. PLAN: Skilled consult. Transfer tomorrow at the soonest. Job ID: [id number]
[2018-12-27] MEDS: Ropivacaine HCl/PF 250 ML in Premix Bag 1 BAG NERVE BLCK SCH (13:52)
[2018-12-27] MEDS: metFORMIN 500 MG TAB PO SCH (18:00)
[2018-12-27] MEDS: traMADol HCl 50 MG TAB PO PRN (18:05)
[2018-12-27] MEDS: Aripiprazole 10 MG TAB PO SCH (20:40)
[2018-12-27] MEDS: traZODone HCl 50 MG TAB PO SCH (20:42)
[2018-12-27] MEDS: Zolpidem Tartrate 5 MG TAB PO SCH (22:10)
[2018-12-28] MEDS: HYDROcodone/Acetaminophen 10/325 mg Tablet PO PRN ×3 (03:32→13:12)
[2018-12-28] MEDS: traMADol HCl 50 MG TAB PO PRN ×2 (05:33→11:35)
[2018-12-28] MEDS: HumaLOG 300 UNITS/3 ML VIAL SC PRN ×2 (05:34→13:03)
[2018-12-28 08:29] VITALS: BP 141/69; TEMP 97.7
[2018-12-28] MEDS: Aspirin 81 mg Enteric Coated Tablet PO SCH (08:46)
[2018-12-28] MEDS: Carvedilol 6.25 MG TAB PO SCH (08:47)
[2018-12-28] MEDS: carBAMazepine 200 MG TAB PO SCH ×2 (08:49→16:08)
[2018-12-28] MEDS: metFORMIN XR 500 MG TAB PO SCH (08:49)
[2018-12-28] MEDS: Gabapentin 300 MG CAP PO SCH ×2 (08:49→16:08)
[2018-12-28] MEDS: Senokot S 8.6-50 MG TAB PO SCH (08:49)
[2018-12-28] MEDS: DULoxetine 30 MG CAP PO SCH (08:49)
[2018-12-28] MEDS: Multivitamin W/ Minerals 1 TAB PO SCH (08:49)
[2018-12-28] MEDS: Ferrous Gluconate 324 MG TAB PO SCH (08:49)
[2018-12-28] MEDS: Chlorthalidone 25 MG TAB PO SCH (08:50)
--- NOTE | 2018-12-28 09:54 | PDOC.PN ---
- Subjective Encounter Start Date: 12/28/18 Encounter Start Time: 07:20 Patient seen and examined. No new complaints. No overnight events - Objective Resuscitation Status - Order Detail: 12/26/18 07:15 Resuscitation Status Routine Resuscitation Status: FULL: Full Resuscitation MAR Reviewed: Yes Vital Signs & Weight: Vital Signs (12 hours) Temp Pulse Resp BP BP Pulse Ox 12/28/18 08:47 141/69 H 12/28/18 08:24 97.7 F 81 18 141/69 H 96 12/28/18 04:00 99.5 F 79 18 123/77 93 L 12/28/18 00:00 98.4 F 80 18 129/72 90 L Weight Admit Weight 210 lb Weight 210 lb I&O: 12/27/18 12/28/18 12/29/18 06:59 06:59 06:59 Intake Total 3160 0 Output Total 2125 Balance 1035 2049 Result Diagrams: 12/27/18 03:57 12/26/18 05:53 Additional Labs: Accuchecks 12/28/18 12/27/18 12/27/18 05:22 21:03 16:12 POC Glucose 161 H 131 H 188 H Phys Exam - Physical Examination Constitutional: NAD HEENT: PERRLA, moist MMs, sclera anicteric Neck: no JVD, supple Respiratory: no wheezing, no rales, no rhonchi Cardiovascular: RRR, no significant murmur, no rub Gastrointestinal: soft, non-tender, no distention, positive bowel sounds Musculoskeletal: no edema, pulses present Neurological: non-focal, normal sensation Lymphatic: no nodes Psychiatric: normal affect, A&O x 3 Skin: no rash, normal turgor Dx/Plan (1) Anemia, normocytic normochromic Code(s): D64.9 - ANEMIA, UNSPECIFIED Status: Acute (2) Status post total right knee replacement Code(s): Z96.651 - PRESENCE OF RIGHT ARTIFICIAL KNEE JOINT Status: Acute (3) Anxiety and depression Code(s): F41.9 - ANXIETY DISORDER, UNSPECIFIED; F32.9 - MAJOR DEPRESSIVE DISORDER, SINGLE EPISODE, UNSPECIFIED Status: Chronic Comment: resume home medication, seroquel, abilify, cymbalta (4) Bipolar disorder Code(s): F31.9 - BIPOLAR DISORDER, UNSPECIFIED Status: Chronic Comment: Continue Cymbalta and Carbamezapine (5) CKD (chronic kidney disease), stage III Code(s): N18.3 - CHRONIC KIDNEY DISEASE, STAGE 3 (MODERATE) Status: Chronic Comment: Avoid nephrotoxic meds and limit contrast exposure (6) Diabetes type 2, controlled Code(s): E11.9 - TYPE 2 DIABETES MELLITUS WITHOUT COMPLICATIONS Status: Chronic Comment: ISS, Metformin, serial accuchecks, ADA (7) Dyslipidemia Code(s): E78.5 - HYPERLIPIDEMIA, UNSPECIFIED Status: Chronic (8) GERD (gastroesophageal reflux disease) Code(s): K21.9 - GASTRO-ESOPHAGEAL REFLUX DISEASE WITHOUT ESOPHAGITIS Status: Chronic Comment: resume protonix (9) Hypertension Code(s): I10 - ESSENTIAL (PRIMARY) HYPERTENSION Status: Chronic Qualifiers: Hypertension type: essential hypertension Qualified Code(s): I10 - Essential (primary) hypertension Comment: Continue Coreg and Olmesartan, serial BP monitoring (10) Obesity (BMI 30.0-34.9) Code(s): E66.9 - OBESITY, UNSPECIFIED Status: Chronic - Plan cont current plan of care, PT/OT, social work administrator * medication reviewed as below * symptomatic treatment. * see discharge liam. Review of Systems - Review of Systems ENT: negative: Ear Pain, Ear Discharge, Nose Pain, Nose Discharge, Nose Congestion, Mouth Pain, Mouth Swelling, Throat Pain, Throat Swelling, Other Respiratory: negative: Cough, Dry, Shortness of Breath, Hemoptysis, SOB with Excertion, Pleuritic Pain, Sputum, Wheezing Cardiovascular: negative: chest pain, palpitations, orthopnea, paroxysmal nocturnal dyspnea, edema, light headedness, other Gastrointestinal: negative: Nausea, Vomiting, Abdominal Pain, Diarrhea, Constipation, Melena, Hematochezia, Other Genitourinary: negative: Dysuria, Frequency, Incontinence, Hematuria, Retention , Other Musculoskeletal: negative: Neck Pain, Shoulder Pain, Arm Pain, Back Pain, Hand Pain, Leg Pain, Foot Pain, Other - Medications/Allergies Allergies/Adverse Reactions: Allergies Allergy/AdvReac Type Severity Reaction Status Date / Time morphine Allergy rash, Verified 12/25/18 14:51 hallucinations oxycodone Allergy Verified 12/25/18 14:51 Medications: Current Medications Acetaminophen (Tylenol) 650 mg PO Q4H PRN PRN Reason: Headache/Fever or Pain Hydrocodone Bitart/Acetaminophen ([place] 10/325) 1 tab PO Q4H PRN PRN Reason: Pain (1-3) Hydrocodone Bitart/Acetaminophen ([place] 10/325) 2 tab PO Q4H PRN PRN Reason: PAIN (4-6) Last Admin: 12/28/18 08:45 Dose: 2 tab Albuterol Sulfate (Proventil Hfa) 2 puff INH TID PRN PRN Reason: Dyspnea Aripiprazole (Abilify) 5 mg PO HS [facility] Last Admin: 12/27/18 20:40 Dose: 5 mg Aspirin (Ecotrin) 81 mg PO BID [facility] Last Admin: 12/28/18 08:46 Dose: 81 mg Carbamazepine (Tegretol) 200 mg PO TID [facility] Last Admin: 12/28/18 08:49 Dose: 200 mg Carvedilol (Coreg) 6.25 mg PO BID [facility] Last Admin: 12/28/18 08:47 Dose: 6.25 mg Chlorthalidone (Hygroton) 25 mg PO DAILY [facility] Last Admin: 12/28/18 08:50 Dose: Not Given Dextrose/Water (Dextrose 50%) 25 gm SLOW IVP PRN PRN PRN Reason: Hypoglycemia Diphenhydramine HCl (Benadryl) 25 mg PO Q6H PRN PRN Reason: Itching Duloxetine HCl (Cymbalta) 30 mg PO DAILY [facility] Last Admin: 12/28/18 08:49 Dose: 30 mg Fentanyl (Sublimaze) 50 mcg SLOW IVP Q1H PRN PRN Reason: breakthrough pain Ferrous Gluconate (Fergon) 324 mg PO BID-[facility] Last Admin: 12/28/18 08:49 Dose: 324 mg Gabapentin (Neurontin) 300 mg PO TID [facility] Last Admin: 12/28/18 08:49 Dose: 300 mg Glucagon (Glucagon) 1 mg IM PRN PRN PRN Reason: Hypoglycemia Ropivacaine 250 ml/ Device 250 mls @ 10 mls/hr NERVE BLCK INF [facility] Last Admin: 12/27/18 13:52 Dose: 250 mls Sodium Chloride (Normal Saline 0.9%) 1,000 mls @ 100 mls/hr IV .Q10H [facility] Last Admin: 12/27/18 23:16 Dose: Not Given Dextrose/Water (D5w) 1,000 mls @ 0 mls/hr IV .Q0M PRN PRN Reason: Hypoglycemia Insulin Human Lispro (Humalog) 0 units SC .MILD SLIDING SCALE PRN PRN Reason: Mild Correctional Scale Last Admin: 12/28/18 05:34 Dose: 2 unit Insulin Human Lispro (Humalog) 0 units SC .BEDTIME SLIDING SC PRN PRN Reason: Bedtime Correctional Scale Last Admin: 12/25/18 22:01 Dose: 2 unit Iron/Minerals/Multivitamins (Theragran M) 1 tab PO DAILY [facility] Last Admin: 12/28/18 08:49 Dose: 1 tab Metformin HCl (Glucophage) 250 mg PO QPM-[facility] Last Admin: 12/27/18 18:00 Dose: 250 mg Metformin HCl (Glucophage Xr) 500 mg PO QAM-[facility] Last Admin: 12/28/18 08:49 Dose: 500 mg Olmesartan (Benicar) 40 mg PO DAILY [facility] Last Admin: 12/28/18 08:48 Dose: 40 mg Ondansetron HCl (Zofran) 4 mg IVP Q6H PRN PRN Reason: Nausea/Vomiting Pantoprazole Sodium (Protonix) 40 mg PO [facility] Last Admin: 12/28/18 08:48 Dose: 40 mg Promethazine HCl (Phenergan) 12.5 mg IM Q4H PRN PRN Reason: Nausea/Vomiting Senna/Docusate Sodium (Senokot S) 2 tab PO BID [facility] Last Admin: 12/28/18 08:49 Dose: 2 tab Sodium Chloride (Flush - Normal Saline) 10 ml IVF PRN PRN PRN Reason: Saline Flush Tramadol HCl (Ultram) 50 mg PO Q6H PRN PRN Reason: Mild Pain (1-3) Tramadol HCl (Ultram) 100 mg PO Q6H PRN PRN Reason: Moderate Pain 4-6 Last Admin: 12/28/18 05:33 Dose: 100 mg Trazodone HCl (Desyrel) 25 mg PO [facility] Last Admin: 12/27/18 20:42 Dose: 25 mg Zolpidem Tartrate (Ambien) 10 mg PO [facility] Last Admin: 12/27/18 22:10 Dose: 10 mg
--- NOTE | 2018-12-28 11:21 | DIS ---
DATE OF ADMISSION: 12/25/2018 DATE OF DISCHARGE: 12/28/2018 PRIMARY CARE PHYSICIAN: Leo Velazquez, DISCHARGE DISPOSITION: Rehab/swing bed. PRIMARY DISCHARGE DIAGNOSIS: Status post right total knee replacement. SECONDARY DISCHARGE DIAGNOSES: Obesity, hypertension, gastroesophageal reflux disease, dyslipidemia, diabetes type 2, CKD stage 3, bipolar disorder, anxiety and depression, normocytic anemia. PRIMARY PROCEDURE/OPERATION: Right total knee replacement. RADIOLOGICAL INVESTIGATION: Knee x-ray. SIGNIFICANT LABORATORY DATA: Hemoglobin 10.6. Creatinine 0.80. DISCHARGE MEDICATIONS: 1. Aspirin 81 mg p.o. b.i.d. 2. Ambien 10 mg p.o. q.h.s. 3. Trazodone 25 mg p.o. at bedtime. 4. Omeprazole 20 mg p.o. q.a.m. 5. Benicar 40 mg daily. 6. Metformin 500 mg daily and 250 mg at bedtime. 7. [place] 1 tablet p.o. as directed. 8. Gabapentin 300 mg p.o. t.i.d. 9. Cymbalta 30 mg daily. 10. Chlorthalidone 25 mg p.o. daily. 11. Coreg 6.25 mg b.i.d. 12. Carbamazepine 200 mg t.i.d. 13. Abilify 5 mg p.o. at bedtime. 14. Proventil HFA 2 puffs three times daily p.r.n. CONTRAINDICATION: None. CODE STATUS: Full code. INPATIENT FIRE SAFETY DIRECTOR: Dr. Cannon was primary while in hospital. Sound Team was consulted for medical comanagement. TEST RESULTS PENDING ON DISCHARGE: None. ALLERGIES: MORPHINE, OXYCODONE. DISCHARGE PLAN: Posthospital, the patient will follow up with primary care physician and Dr. Cannon. HOSPITAL COURSE: A 63-year-old female, who was electively admitted by Dr. Cannon for right total knee replacement, which was done on December 25, 2018, without any immediate complication. Postoperatively, a [facility] Team was consulted for medical comanagement. While in hospital, the patient's medical problems remained stable. While in hospital, she was given no block for pain control as well as pain medication for pain control. She was given aspirin for DVT prophylaxis. The patient did relatively well with [facility] protocol treatment. The patient was needing placement and that is why with help of casey saw operator, rehab was arranged. Overall, the patient is medically stable. If Primary Team is okay, then patient will be discharged later on today as the patient has been approved for rehabilitation at swing bed. Please see my progress note from today for further details. Job ID: [id number]
[2018-12-28] MEDS: Sodium Chloride 0.9% 1,000 ML IV SCH (11:38)
== END 2018-12-28 15:32 | DRG 470 ==
LOC: SDC 06:09 → SJJU 12:02
PROVIDERS: ADMIT Orthopaedic Surgery; ATTEND Orthopaedic Surgery
PROC: 0SRC0J9 Replacement of Right Knee Joint with Synthetic Substitute, Cemented, Open Approach (ICD-10-PCS; principal; 2018-12-25)
DX: M17.11 Unilateral primary osteoarthritis, right knee (principal); F31.9 Bipolar disorder, unspecified; N18.3 Chronic kidney disease, stage 3 (moderate); I12.9 Hypertensive chronic kidney disease with stage 1 through stage 4 chronic kidney disease, or unspecified chronic kidney disease; E11.22 Type 2 diabetes mellitus with diabetic chronic kidney disease; D64.9 Anemia, unspecified; F41.9 Anxiety disorder, unspecified; E78.5 Hyperlipidemia, unspecified; K21.9 Gastro-esophageal reflux disease without esophagitis; E66.9 Obesity, unspecified; Z68.34 Body mass index [BMI] 34.0-34.9, adult; Z88.5 Allergy status to narcotic agent
CPT/HCPCS: 36415; 36416; 80048; 85027; 86850; 86900; 86901; C1713; C1776; J1885; J2001; J2250; J2405; J2704; J2795; J3010; J3370; J7050

== ENCOUNTER 2019-05-07 09:45 | Outpatient (CLI) | payer MEDICARE ==
--- NOTE | 2019-05-07 11:16 | MMO ---
Bilateral MAMMO Bilat Screen DDI. CLINICAL HISTORY: Patient is 64 years old and is seen for screening. The patient has no family history of breast cancer. The patient has no personal history of cancer. VIEWS: The views performed were: bilateral craniocaudal and bilateral mediolateral oblique. FILMS COMPARED: The present examination has been compared to a prior imaging study performed at [facility] on 02/03/2017. This study has been interpreted with the assistance of computer-aided detection. MAMMOGRAM FINDINGS: The breasts are heterogeneously dense, which could obscure a lesion on mammography. There are no suspicious masses, calcifications or areas of architectural distortion. There are benign appearing calcifications in the left breast. Stable diffuse increased asymmetric right breast parenchyma. There are no suspicious masses, suspicious calcifications, or new areas of architectural distortion. IMPRESSION: THERE IS NO MAMMOGRAPHIC EVIDENCE OF MALIGNANCY. A ROUTINE FOLLOW-UP MAMMOGRAM IN 1 YEAR IS RECOMMENDED. ACR BI-RADS Category 2 - Benign finding MAMMOGRAPHY NOTE: 1. A negative mammogram report should not delay a biopsy if a dominant of clinically suspicious mass is present. 2. Approximately 10% to 15% of breast cancers are not detected by mammography. 3. Adenosis and dense breasts may obscure an underlying neoplasm. Reported by: ASHLYN SLAUGHTER MD Electonically Signed: [id number]
== END 2019-05-07 09:46 | disposition home or self-care (01) ==
LOC: SCSMAMMO 09:45
PROVIDERS: ATTEND Family Medicine
DX: Z12.31 Encounter for screening mammogram for malignant neoplasm of breast (principal)
CPT/HCPCS: 77067

== ENCOUNTER 2019-08-16 16:50 | Outpatient (CLI) | payer MEDICARE ==
[2019-08-16 18:33] LABS: #Basophils 0.1 thou/uL (0.0-0.2); #Eosinphils 0.1 thou/uL (0.0-0.7); #Monocytes 0.9 thou/uL (0.11-0.59); #Neutrophils 4.1 thou/uL (1.40-6.50); %Basophils 0.7 % (0.0-1.0); %Eosinophils 1.7 % (0.0-10.0); %Lymphocytes 37.1 % (21.0-51.0); %Monocytes 10.5 % (0.0-10.0); %Neutrophils 49.9 % (42.0-75.0); Hemoglobin 13.1 g/dL (12.0-16.0); Mean Corpuscular HGB CONC 31.8 g/dL (32.0-36.0); Mean Corpuscular Hemoglobin 24.3 pg (27.0-31.0); Mean Corpuscular Volume 76.3 fL (78.0-98.0); Mean Platelet Volume 10.3 fL (7.4-10.4); Platelet Count 228 thou/uL (130-400); RBC Distribution Width 13.4 % (11.5-14.5); Red Blood Cell (RBC) Count 5.39 mill/uL (4.20-5.40); White Blood Cell (WBC) Count 8.1 thou/uL (4.8-10.8)
[2019-08-16 18:39] LABS: Prothrombin Time 12.8 SEC (12.0-14.7)
[2019-08-16 18:49] LABS: Anion Gap 16 mmol/L (10-20); BUN (Urea Nitrogen) 13 mg/dL (9.8-20.1); Calc. Creatinine Clearance 0 mL/min (70-130); Calcium 9.8 mg/dL (7.8-10.44); Carbon Dioxide 24 mmol/L (23-31); Chloride 101 mmol/L (98-107); Estimated GFR-MDRD 64; Glucose 129 mg/dL (80-115); Potassium 4.4 mmol/L (3.5-5.1); Sodium 137 mmol/L (136-145)
--- NOTE | 2019-08-19 16:48 | EKG ---
Test Reason : Blood Pressure : / mmHG Vent. Rate : 061 BPM Atrial Rate : 061 BPM P-R Int : 166 ms QRS Dur : 074 ms QT Int : 398 ms P-R-T Axes : 067 -43 058 degrees QTc Int : 400 ms Normal sinus rhythm Left axis deviation Septal infarct (cited on or before 14-NOV-2017) Abnormal ECG When compared with ECG of 13-DEC-2018 13:53, No significant change was found Confirmed by DR. Garrett CALDWELL (3) on 08/19/2019 4:47:26 PM Referred By: SONNY Confirmed By:DR. Garrett CALDWELL
== END 2019-08-16 16:51 | disposition home or self-care (01) ==
LOC: LABBT 16:50
PROVIDERS: ATTEND Orthopaedic Surgery
DX: Z01.818 Encounter for other preprocedural examination (principal); M17.12 Unilateral primary osteoarthritis, left knee
CPT/HCPCS: 80048; 85025; 85610; 93005; 93010

== ENCOUNTER 2019-09-17 06:16 | Day surgery (SDC) | payer MEDICARE ==
[2019-08-16 17:08] VITALS: BMI 39.9
[2019-09-17] MEDS ORDERED: Sodium Chloride 0.9% 100 ML ONE (07:13)
[2019-09-17] MEDS ORDERED: Tranexamic Acid 1,000 MG/10 ML VIAL ONE (07:13)
[2019-09-17] MEDS ORDERED: Vancomycin 1.5 GRAM/300 ML BAG 1.5 GM in Premix Bag 1 BAG IVPB SCH (07:30)
[2019-09-17] MEDS ORDERED: Midazolam HCl 2 mg/2 ml Vial ONE (08:35)
[2019-09-17] MEDS ORDERED: Fentanyl 100 MCG/2 ML VIAL ONE ×7 (08:35→12:24)
[2019-09-17] MEDS ORDERED: Fentanyl 100 MCG/2 ML VIAL SLOW IVP PRN (08:47)
[2019-09-17] MEDS ORDERED: traMADol HCl 50 MG TAB PO PRN (08:47)
[2019-09-17] MEDS ORDERED: HYDROcodone/Acetaminophen 10/325 mg Tablet PO PRN (08:47)
[2019-09-17] MEDS ORDERED: Promethazine HCl 25 MG/ML VIAL IM PRN ×3 (08:47→10:59)
[2019-09-17] MEDS ORDERED: Ondansetron PF 4 MG/2 ML Vial IVP PRN ×2 (08:47→09:13)
[2019-09-17] MEDS ORDERED: Zolpidem Tartrate 5 MG TAB PO PRN ×2 (08:47→09:13)
[2019-09-17] MEDS ORDERED: diphenhydrAMINE 25 MG CAP PO PRN (09:13)
[2019-09-17] MEDS ORDERED: Acetaminophen 325 MG TAB PO PRN (09:13)
[2019-09-17] MEDS ORDERED: Albuterol Sulfate HFA (OR ONLY) INH PRN (09:14)
[2019-09-17] MEDS ORDERED: PROPOFOL 200 MG/20 ML VIAL ONE (09:37)
[2019-09-17] MEDS ORDERED: Ropivacaine 0.2% HCl/PF (40 MG/20 ML VIAL) ONE (09:37)
[2019-09-17] MEDS ORDERED: Ondansetron PF 4 MG/2 ML Vial ONE (09:37)
[2019-09-17] MEDS ORDERED: Lidocaine 1% PF 5 ML VIAL ONE (09:37)
[2019-09-17] MEDS ORDERED: EPINEPHrine 1 MG/ML AMP ONE (09:37)
[2019-09-17] MEDS ORDERED: Ropivacaine 0.5% HCl/PF (150 MG/30 ML VIAL) ONE (09:37)
[2019-09-17] MEDS ORDERED: Promethazine HCl 25 MG/ML VIAL SLOW IVP PRN (10:59)
[2019-09-17] MEDS ORDERED: Ondansetron HCl/PF 4 MG/2 ML Vial IVP PRN (10:59)
--- NOTE | 2019-09-17 11:20 | OP ---
DATE OF PROCEDURE: 09/17/2019 PROCEDURE PERFORMED: Left total knee arthroplasty using a Samira triathlon size 4 femur, 4 tibia, 9 mm CS X3 polyethylene, A29 patella. DATA PROCESSING CLERK: Pablo Manuel PA-C BLOOD LOSS: Minimal. SPECIMEN: None. DRAIN: None. COMPLICATION: None. TOURNIQUET TIME: 55 minutes. PROCEDURE IN DETAIL: After informed consent was obtained in the preoperative holding area, the patient was taken to the operative suite where general anesthesia was induced. Once adequate level of general anesthesia was obtained, the patient was positioned and a well-padded tourniquet was placed around the left proximal thigh. The left lower extremity was then prepped and draped in the usual sterile fashion. Prior to exsanguination, a time-out was called and all members of the surgical team agreed upon site, surgeon, and patient. The extremity was then exsanguinated and the tourniquet was raised. A midline longitudinal incision was then made directly over the patella extending 2 fingerbreadths above the superior pole of the patella and 2 fingerbreadths inferior to the inferior patellar pole of the patella. Deeper subcutaneous layers were dissected sharply and local bleeding was controlled with Bovie electrocautery. A quad tendon longitudinal split was then made sharply and a median parapatellar arthrotomy was carried out both sharp and with Bovie electrocautery, carried down to 1 fingerbreadth medial to the tibial tubercle. The knee was then placed into flexion and the patella was everted nicely, and a copious fat pad ectomy was performed allowing for greater exposure of the tibia. The computer-assisted distal femoral fiducial was then placed and pinned firmly, and the distal femoral cutting guide was pinned firmly into place. The oscillating saw was then used to remove the appropriate amount of bone. The 4-in-1 cutting block was then placed on the distal femur and the oscillating saw was used to remove the appropriate amount of bone off the anterior, posterior, and chamfer cuts. After completion of bone cuts, the anterior cruciate ligament was resected sharply and the posterior cruciate ligament retractor was placed and the tibia was subluxed for better exposure. Partial meniscectomies were carried out, and the tibial computer-assisted fiducial was pinned, and the cutting guide was placed. Oscillating saw was then used to remove the bone, with Hohmann retractors used to take care and protect the collateral ligaments. After the tibial resection was performed, a laminar premium note interest calculator clerk was placed in between the freshened bone cuts. The knee placed at 90 degrees and further bilateral meniscectomies were carried out, and the curved osteotome and curettage were used to remove any excess bone spurs in the posterior compartment. The trial femoral component, tibial baseplate were placed with the appropriate polyethylene trial insert with an appropriate polyethylene spacer and patellar button. The knee was taken through full range of motion with flexion and extension from 0 to 90 degrees and patellar broach squarely in the trochlea without any squinting or subluxation noted. The knee was also stable to varus and valgus stressing at 0, 15, 45, and 90 degrees of flexion. The drawer was negative. All trial components were then removed and the keel punch was used to provide the appropriate defect in the tibia with a mallet. The freshened bone cuts were copiously irrigated with pulsatile lavage of about 1.5 L to remove all excess debris. The freshened bone cuts were then dried with suction and lap sponge. The knee was placed in flexion and retractors were placed to provide access to all bone cuts. Tobramycin-impregnated methyl methacrylate cement was then placed on the freshened bone cuts and implants which were malleted firmly into place. Curettage and [place] elevators were used to remove any excess bone cement. The knee was placed into full extension and the patellar button was placed under compression, and the cement was allowed to cure. Once completed, the components were again taken through full range of motion and copious irrigation of the knee was carried out with another liter of normal saline. All components were inspected fully with full range of motion and varus and valgus stressing. There was no laxity noted and full extension was observed clinically. Primary closure was accomplished with #2 interrupted Vicryl stitch of the arthrotomy defect. This was oversewn with a #2 running Quill barbed stitch. The gravitational platelet system was then injected into the arthrotomy prior to closure. The subcutaneous layer was then closed with a running 0 barbed Monocryl stitch and skin closure accomplished with a running subcuticular 3-0 Monocryl barbed Quill stitch and augmented with cement on the skin. Tourniquet was lowered. Good spontaneous return of distal pulses was noted clinically and a sterile dressing was applied to the incision. The procedure was terminated without any complications. The patient was awakened in the operative suite, and the patient was taken to the recovery room in stable condition. Job ID: [id number]
--- NOTE | 2019-09-17 11:34 | RAD ---
Exam:Left knee 2 HISTORY: Total left knee arthropod COMPARISON: None FINDINGS: Findings compatible with left knee arthroplasty. Near anatomic alignment. IMPRESSION: Findings compatible left knee arthroplasty
[2019-09-17] MEDS ORDERED: Ketorolac Tromethamine 30 MG/ML VIAL ONE (11:40)
[2019-09-17] MEDS: HYDROcodone/Acetaminophen 10/325 mg Tablet PO PRN ×3 (13:17→21:40)
[2019-09-17] MEDS: Sodium Chloride 0.9% 1,000 ML IV SCH ×2 (13:18→19:25)
[2019-09-17] MEDS: Ketorolac Tromethamine 30 MG/ML VIAL IVP SCH ×3 (15:17→23:48)
[2019-09-17] MEDS: carBAMazepine 200 MG TAB PO SCH ×2 (15:57→21:43)
[2019-09-17] MEDS: Gabapentin 300 MG CAP PO SCH ×2 (15:58→21:43)
[2019-09-17] MEDS: CEFAZOLIN 2 GM in Premix Bag 1 BAG IVPB SCH ×2 (15:58→23:49)
--- NOTE | 2019-09-17 17:13 | PDOC.HHP ---
Hospitalist HPI - History of Present Illness Left knee pain History of Present Illness: 64 YO F with a PMH of DM, HTN, tobacco abuse and DJD who was admitted for a left TKR. Pt had DJD in both knees The right knee was replaced in January 2019. Due to worsening pain and debility of her LLE, she was scheduled for left TKR today. Pt was seen post Op as a consult for med mgt. She denied any complaints at this time. Hospitalist ROS - Review of Systems Constitutional: denies: fever, chills, sweats, weakness, malaise, other Eyes: denies: pain, vision change, conjunctivae inflammation, eyelid inflammation, redness, other ENT: denies: ear pain, ear discharge, nose pain, nose discharge, nose congestion , mouth pain, mouth swelling, throat pain, throat swelling, other Respiratory: denies: cough, dry, shortness of breath, hemoptysis, SOB with excertion, pleuritic pain, sputum, wheezing, other Cardiovascular: denies: chest pain, palpitations, orthopnea, paroxysmal noc. dyspnea, edema, light headedness, other Gastrointestinal: denies: nausea, vomiting, abdominal pain, diarrhea, constipation, melena, hematochezia, other Genitourinary: denies: dysuria, frequency, incontinence, hematuria, retention, other Musculoskeletal: reports: leg pain Skin: denies: rash, lesions, hannah, bruising, other Neurological: denies: weakness, numbness, incoordination, change in speech, confusion, seizures, other - Medication Medications: Active Medications Generic Name Dose Route Start Last Admin Trade Name Freq PRN Reason Stop Dose Admin Hydrocodone Bitart/Acetaminophen 2 tab 09/17/19 08:47 09/17/19 13:17 [place] 10/325 PO 2 tab Q4H PRN Administration PAIN (4-6) Carbamazepine 200 mg 09/17/19 15:00 09/17/19 15:57 Tegretol PO 200 mg TID STEFANI Administration Fentanyl 50 mcg 09/17/19 08:47 09/17/19 16:22 Sublimaze SLOW IVP 50 mcg Q1H PRN Administration breakthrough pain Gabapentin 300 mg 09/17/19 15:00 09/17/19 15:58 Neurontin PO 300 mg TID STEFANI Administration Cefazolin Sodium/Dextrose 2 gm 50 mls @ 100 mls/hr 09/17/19 15:00 09/17/19 15 :58 / Device IVPB 09/17/19 23:29 50 mls 0700,1500,2300 STEFANI Administration Sodium Chloride 1,000 mls @ 100 mls/hr 09/17/19 09:15 09/17/19 13:18 Normal Saline 0.9% IV 1,000 mls .Q10H STEFANI Administration Ketorolac Tromethamine 30 mg 09/17/19 12:00 09/17/19 15:17 Toradol IVP 09/19/19 06:01 Not Given Q6HR [facility] Hospitalist History - Past Medical History Cardiac: reports: HTN Pulmonary: reports: high cholesterol Gastrointestinal: reports: GERD Musculoskeletal: reports: Osteoarthritis Endocrine: reports: Diabetes - Past Surgical History Past Surgical History: reports: no pertinent history, Total Knee Replacement, Tonsillectomy - Family History Family History: reports: no pertinent history, hypertension - Social History Smoking Status: Current every day smoker Alcohol: reports: None Drugs: reports: none Living Situation: With Family Domestic Violence: Negative Activity level: independent ambulation - Exam General Appearance: NAD, awake alert Eye: PERRL, anicteric sclera ENT: normocephalic atraumatic, no oropharyngeal lesions, moist mucosa Neck: supple, symmetric, no JVD, no thyromegaly, no lymphadenopathy, no carotid bruit Heart: RRR, no murmur, no gallops, no rubs, normal peripheral pulses Respiratory: CTAB, no wheezes, no rales, no ronchi, normal chest expansion, no tachypnea, normal percussion Extremities: no cyanosis, no clubbing, no edema Extremities - other findings: Dressing over left knee Skin: normal turgor, no lesions, no rashes Neurological: cranial nerve grossly intact, normal sensation to touch, no weakness, no focal deficits, no new deficit Musculoskeletal: normal tone, normal strength, no muscle wasting Psychiatric: normal affect, normal behavior, A&O x 3 Hospitalist H&P A/P - Problem (1) Knee joint replacement status Code(s): Z96.659 - PRESENCE OF UNSPECIFIED ARTIFICIAL KNEE JOINT Status: Acute Qualifiers: Laterality: left Qualified Code(s): Z96.652 - Presence of left artificial knee joint Assessment and Plan: Pt is s/p left TKR and stable. Will control pain, f/u with PT and Ortho recs. (2) Total knee replacement status Code(s): Z96.659 - PRESENCE OF UNSPECIFIED ARTIFICIAL KNEE JOINT Status: Acute (3) Diabetes type 2, controlled Code(s): E11.9 - TYPE 2 DIABETES MELLITUS WITHOUT COMPLICATIONS Status: Chronic Qualifiers: Diabetes mellitus director long term care insulin use: without director long term care use Diabetes mellitus complication status: without complication Qualified Code(s): E11.9 - Type 2 diabetes mellitus without complications Assessment and Plan: Cont DM meds, monitor BG, cover with SSI. (4) CKD (chronic kidney disease), stage III Code(s): N18.3 - CHRONIC KIDNEY DISEASE, STAGE 3 (MODERATE) Status: Chronic Assessment and Plan: Stable for now, will avoid nephrotoxic meds. Monitor Cr (5) Anxiety and depression Code(s): F41.9 - ANXIETY DISORDER, UNSPECIFIED; F32.9 - MAJOR DEPRESSIVE DISORDER, SINGLE EPISODE, UNSPECIFIED Status: Chronic Assessment and Plan: Stable, cont prior meds. (6) Anemia, normocytic normochromic Code(s): D64.9 - ANEMIA, UNSPECIFIED Status: Acute Assessment and Plan: Stable, monitor Hg (7) Tobacco abuse Code(s): Z72.0 - TOBACCO USE Status: Acute Assessment and Plan: Has been counselled. Will give Nicotine while in hospital. - Plan Plan: PPx: Lovenox. CODE status: Full. Dispo: Cont current mgt. Thx for the consult. We will follow
[2019-09-17] MEDS ORDERED: Dextrose 50% Abboject 50 ML SYRINGE SLOW IVP PRN (17:28)
[2019-09-17] MEDS ORDERED: Dextrose 5% in Water 1,000 ML IV PRN (17:28)
[2019-09-17] MEDS: traMADol HCl 50 MG TAB PO PRN ×2 (18:19→23:58)
[2019-09-17] MEDS ORDERED: Aspirin 81 mg Enteric Coated Tablet PO SCH (21:00)
[2019-09-17] MEDS: Ferrous Gluconate 324 MG TAB PO SCH (21:42)
[2019-09-17] MEDS: Aspirin 81 mg Enteric Coated Tablet PO SCH (21:43)
[2019-09-17] MEDS: Aripiprazole 2 MG TAB PO SCH (21:44)
[2019-09-17] MEDS: traZODone HCl 50 MG TAB PO SCH (21:45)
[2019-09-17] MEDS: metFORMIN 500 MG TAB PO SCH (21:47)
[2019-09-17] MEDS: Carvedilol 6.25 MG TAB PO SCH (21:50)
[2019-09-17] MEDS: Senokot S 8.6-50 MG TAB PO SCH (21:53)
[2019-09-17] MEDS: HumaLOG 300 UNITS/3 ML VIAL SC PRN (22:12)
[2019-09-17] MEDS: Zolpidem Tartrate 5 MG TAB PO SCH (23:50)
[2019-09-18] MEDS: HYDROcodone/Acetaminophen 10/325 mg Tablet PO PRN ×3 (04:54→21:45)
[2019-09-18] MEDS: Ketorolac Tromethamine 30 MG/ML VIAL IVP SCH ×4 (04:57→23:18)
[2019-09-18 05:55] LABS: Hemoglobin 10.2 g/dL (12.0-16.0); Mean Corpuscular HGB CONC 31.2 g/dL (32.0-36.0); Mean Corpuscular Hemoglobin 23.9 pg (27.0-31.0); Mean Corpuscular Volume 76.8 fL (78.0-98.0); Mean Platelet Volume 9.9 fL (7.4-10.4); Platelet Count 173 thou/uL (130-400); RBC Distribution Width 12.8 % (11.5-14.5); Red Blood Cell (RBC) Count 4.25 mill/uL (4.20-5.40)
[2019-09-18] MEDS: Sodium Chloride 0.9% 1,000 ML IV SCH ×2 (06:02→15:09)
[2019-09-18] MEDS: traMADol HCl 50 MG TAB PO PRN (07:12)
--- NOTE | 2019-09-18 08:20 | PRG ---
DATE OF SERVICE: 09/18/2019 SUBJECTIVE: Leia is a 64-year-old female, postop day 1 from a left total knee arthroplasty. This is her second total knee within the last year and she is doing relatively well. Last hospitalization, I believe she has spent time in [facility] swing bed, but today we are discussing options of returning home. She otherwise has good pain control and no complaints this morning. OBJECTIVE: VITAL SIGNS: Temperature 98, pulse 75, respiratory rate 18, and blood pressure 121/74. NEUROLOGIC: She is alert and oriented to person, place, time, situation, responsive, appropriate with the examiner, nonfocal. Neurovascular intact in both lower extremities. She wears long-leg immobilizer. LABORATORY DATA: Hemoglobin and hematocrit are 10.2 and 32.6. IMPRESSION: A 64-year-old female, postop day 1, left total knee arthroplasty, doing well. PLAN: We will give consideration to home discharge tomorrow or the next day, but she may require a skilled consult. Lets see how she does with therapy today and decide based on performance. Job ID: [id number]
[2019-09-18] MEDS ORDERED: Non-Formulary Item 1 EACH (Omeprazole [Omeprazole] 20 MG) PO SCH (09:00)
[2019-09-18] MEDS: Gabapentin 300 MG CAP PO SCH ×3 (09:19→21:53)
[2019-09-18] MEDS: Losartan 25 MG TAB PO SCH (09:20)
[2019-09-18] MEDS: Carvedilol 6.25 MG TAB PO SCH ×2 (09:21→21:55)
[2019-09-18] MEDS: Senokot S 8.6-50 MG TAB PO SCH ×2 (09:21→23:22)
[2019-09-18] MEDS: Aspirin 81 mg Enteric Coated Tablet PO SCH ×2 (09:21→21:55)
[2019-09-18] MEDS: metFORMIN 500 MG TAB PO SCH ×3 (09:22→21:55)
[2019-09-18] MEDS: carBAMazepine 200 MG TAB PO SCH ×3 (09:22→21:53)
[2019-09-18] MEDS: HYDROcodone/Acetaminophen 10/325 mg Tablet PO SCH (09:22)
[2019-09-18] MEDS: Multivitamin W/ Minerals 1 TAB PO SCH (09:22)
[2019-09-18] MEDS: DULoxetine 30 MG CAP PO SCH (09:22)
[2019-09-18] MEDS: Ferrous Gluconate 324 MG TAB PO SCH ×2 (09:22→21:52)
[2019-09-18] MEDS: Chlorthalidone 25 MG TAB PO SCH (09:29)
[2019-09-18] MEDS: Ropivacaine HCl/PF 250 ML in Premix Bag 1 BAG NERVE BLCK SCH (10:34)
--- NOTE | 2019-09-18 14:56 | PRG ---
DATE OF SERVICE: 09/18/2019 SUBJECTIVE: Patient is seen and examined at the bedside. She does not have complaints to offer. Her pain level is under control. She just finished her PT session. OBJECTIVE: VITAL SIGNS: Blood pressure is 137/68, pulse is 79, temperature is 98, respirations 18, O2 saturation 92% on room air. HEENT: Head is atraumatic and normocephalic. Eyes are PERRLA. Sclerae are nonicteric. Oral mucosa is moist. NECK: Supple. LUNGS: Clear. HEART: S1, S2 normal. ABDOMEN: Soft, nontender. Bowel sounds are present. No organomegaly. EXTREMITIES: The left knee shows some swelling around the left knee area. There is a dressing in place. NEUROLOGIC: She is alert and oriented x4. There is no any motor deficits. LABORATORY DATA: Labs showed white count of 7.0, hemoglobin 10.2, hematocrit 32.6, platelet count is 173,000. Glucose is ranging from 150 to 188. IMPRESSION: 1. Diabetes mellitus type 2, relatively well controlled. 2. Anemia, normocytic normochromic, status post operation. 3. Anxiety and depression, chronic, stable. 4. Chronic kidney disease stage 3. 5. Status post total knee replacement of the left knee. PLAN: We will continue her DuoNebs p.r.n. We will continue her home medications. We will continue her pain management with oral hydrocodone and we will continue aspirin 81 mg twice a day. Job ID: [id number]
[2019-09-18] MEDS: HumaLOG 300 UNITS/3 ML VIAL SC PRN ×2 (16:36→22:10)
[2019-09-18] MEDS: traZODone HCl 50 MG TAB PO SCH (21:50)
[2019-09-18] MEDS: Aripiprazole 2 MG TAB PO SCH (22:02)
[2019-09-18] MEDS: Zolpidem Tartrate 5 MG TAB PO SCH (23:18)
[2019-09-19] MEDS: Sodium Chloride 0.9% 1,000 ML IV SCH ×2 (04:14→11:27)
[2019-09-19] MEDS: HYDROcodone/Acetaminophen 10/325 mg Tablet PO PRN ×4 (04:22→20:10)
[2019-09-19] MEDS: Ketorolac Tromethamine 30 MG/ML VIAL IVP SCH (06:05)
[2019-09-19 06:09] LABS: Hemoglobin 9.7 g/dL (12.0-16.0); Mean Corpuscular HGB CONC 31.9 g/dL (32.0-36.0); Mean Corpuscular Hemoglobin 24.3 pg (27.0-31.0); Mean Corpuscular Volume 76.1 fL (78.0-98.0); Mean Platelet Volume 10.4 fL (7.4-10.4); Platelet Count 156 thou/uL (130-400); RBC Distribution Width 12.9 % (11.5-14.5); Red Blood Cell (RBC) Count 4.01 mill/uL (4.20-5.40); White Blood Cell (WBC) Count 8.3 thou/uL (4.8-10.8)
[2019-09-19] MEDS: Chlorthalidone 25 MG TAB PO SCH (10:09)
[2019-09-19] MEDS: DULoxetine 30 MG CAP PO SCH (10:09)
[2019-09-19] MEDS: metFORMIN 500 MG TAB PO SCH ×2 (10:09→18:15)
[2019-09-19] MEDS: Aspirin 81 mg Enteric Coated Tablet PO SCH ×2 (10:09→20:09)
[2019-09-19] MEDS: Gabapentin 300 MG CAP PO SCH ×3 (10:10→20:09)
[2019-09-19] MEDS: Carvedilol 6.25 MG TAB PO SCH ×2 (10:10→20:10)
[2019-09-19] MEDS: Ferrous Gluconate 324 MG TAB PO SCH ×2 (10:10→20:09)
[2019-09-19] MEDS: Multivitamin W/ Minerals 1 TAB PO SCH (10:10)
[2019-09-19] MEDS: Senokot S 8.6-50 MG TAB PO SCH ×2 (10:10→20:10)
[2019-09-19] MEDS: HYDROcodone/Acetaminophen 10/325 mg Tablet PO SCH (10:11)
[2019-09-19] MEDS: Losartan 25 MG TAB PO SCH (10:11)
[2019-09-19] MEDS: carBAMazepine 200 MG TAB PO SCH ×3 (10:13→20:11)
[2019-09-19] MEDS: Ropivacaine HCl/PF 250 ML in Premix Bag 1 BAG NERVE BLCK SCH (11:38)
--- NOTE | 2019-09-19 13:23 | PRG ---
DATE OF SERVICE: 09/19/2019 SUBJECTIVE: Leia is a 64-year-old female, postop day 2 from a left total knee arthroplasty. She is doing relatively well. Pain is controlled. She is ambulating approximately 200 feet, little bit slow with milestones of ADLs. OBJECTIVE: VITAL SIGNS: Temperature 98.4, pulse 81, respiratory rate 15 and nonlabored, O2 saturation is 90% on room air, and blood pressure is 113/70. GENERAL: She is alert and oriented to person, place, time, situation, responsive, appropriate with examiner, nonfocal. EXTREMITIES: Her incision is clean. No strike through. She is neurovascularly intact. LABORATORY DATA: Hemoglobin and hematocrit of 9.7 and 30.5. IMPRESSION: A 64-year-old female, postop day 2, left total knee arthroplasty. PLAN: We will plan for discharge tomorrow to home with family. Job ID: [id number]
--- NOTE | 2019-09-19 13:45 | PRG ---
DATE OF SERVICE: 09/19/2019 SUBJECTIVE: The patient is seen and examined at the bedside. She has some pain, rated at around 6 or 7 during my visit, but she takes [place], which helps significantly with pain. Appetite is fair. She did not have any bowel movement, but she feels like she will move her bowels in the next hour or 2. OBJECTIVE: VITAL SIGNS: Blood pressure is 136/77, pulse is 80, temperature is 97.9, respirations 16, and O2 saturation is 96% on room air. HEENT: Head is atraumatic and normocephalic. Eyes are PERRLA. Sclerae are nonicteric. Oral mucosa is moist. NECK: Supple. LUNGS: Clear. HEART: S1-S2 normal. No S3. No S4. No murmur. ABDOMEN: Soft and nontender. Bowel sounds are present. No organomegaly. EXTREMITIES: Left knee area with small dressing with some edema around the knee area. NEUROLOGIC: She is alert and oriented x4. There is no any motor or sensory deficits. LABORATORY DATA: Labs showed glycemia ranging from 150 to 221. IMPRESSION: 1. Diabetes mellitus type 2, relatively well controlled. 2. Anemia, normocytic normochromic, status postop. 3. Anxiety and depression, chronic, stable. 4. Chronic kidney disease, stage 3. 5. Status post total knee replacement of the left knee. The patient is going to continue her PT. She will continue her baby aspirin, dosed twice a day, along with Abilify, Tegretol, Coreg, chlorthalidone, duloxetine, gabapentin, ferrous gluconate, and losartan. We will change her metformin to 500 mg twice a day from her current regimen to have better coverage of her glycemia and she should be able to go home in the next 24 hours as per recommendation by Ortho. Job ID: [id number]
[2019-09-19] MEDS: traZODone HCl 50 MG TAB PO SCH (20:09)
[2019-09-19] MEDS: Aripiprazole 2 MG TAB PO SCH (20:11)
[2019-09-19] MEDS: Zolpidem Tartrate 5 MG TAB PO SCH (20:11)
[2019-09-20] MEDS: HYDROcodone/Acetaminophen 10/325 mg Tablet PO PRN ×3 (02:49→10:42)
[2019-09-20 05:53] LABS: Hemoglobin 9.5 g/dL (12.0-16.0); Mean Corpuscular HGB CONC 30.8 g/dL (32.0-36.0); Mean Corpuscular Hemoglobin 23.3 pg (27.0-31.0); Mean Corpuscular Volume 75.8 fL (78.0-98.0); Mean Platelet Volume 10.1 fL (7.4-10.4); Platelet Count 177 thou/uL (130-400); RBC Distribution Width 12.7 % (11.5-14.5); Red Blood Cell (RBC) Count 4.07 mill/uL (4.20-5.40); White Blood Cell (WBC) Count 6.4 thou/uL (4.8-10.8)
[2019-09-20 08:41] VITALS: TEMP 98.1
[2019-09-20] MEDS: Carvedilol 6.25 MG TAB PO SCH (09:04)
[2019-09-20] MEDS: DULoxetine 30 MG CAP PO SCH (09:04)
[2019-09-20] MEDS: Losartan 25 MG TAB PO SCH (09:05)
[2019-09-20] MEDS: Senokot S 8.6-50 MG TAB PO SCH (09:05)
[2019-09-20] MEDS: Gabapentin 300 MG CAP PO SCH (09:06)
[2019-09-20] MEDS: metFORMIN 500 MG TAB PO SCH (09:06)
[2019-09-20] MEDS: Ferrous Gluconate 324 MG TAB PO SCH (09:06)
[2019-09-20] MEDS: Aspirin 81 mg Enteric Coated Tablet PO SCH (09:07)
[2019-09-20] MEDS: Multivitamin W/ Minerals 1 TAB PO SCH (09:07)
[2019-09-20] MEDS: carBAMazepine 200 MG TAB PO SCH (09:07)
[2019-09-20 09:21] VITALS: BP 118/72
[2019-09-20] MEDS: HYDROcodone/Acetaminophen 10/325 mg Tablet PO SCH (10:04)
[2019-09-20] MEDS: Chlorthalidone 25 MG TAB PO SCH (10:04)
--- NOTE | 2019-09-23 11:28 | DIS ---
DATE OF ADMISSION: 09/17/2019 DATE OF DISCHARGE: 09/20/2019 DISCHARGE DISPOSITION: Home. ADMISSION DIAGNOSIS: End-stage tricompartmental osteoarthritis, left knee. DISCHARGE DIAGNOSIS: End-stage tricompartmental osteoarthritis, left knee. OPERATIVE PROCEDURE: Left total knee arthroplasty. CONSULTANTS: [facility] and [facility]. BRIEF CLINICAL HISTORY: Leia is a 64-year-old female who was admitted to [facility], underwent the above elective procedure on date of admission without intra, peterson or postoperative complications. Her hospital course was unremarkable with the exception of the patient being a little slow in reaching milestones of ADLs and independence; therefore with we elected to keep her one more day for further efforts at this. At the time of discharge, the patient is afebrile, she is ambulatory, in a full weightbearing fashion, utilizing a rolling walker. Tolerating regular diet and voiding without difficulty. Her incision is clean. There is no erythema or strike through and she is neurovascularly intact in the left lower extremity. DISCHARGE MEDICATIONS: Please see medication reconciliation form. We will be happy to see the patient on an as-needed basis between now and next scheduled appointment. CONDITION ON DISCHARGE: Stable. PROGNOSIS: Good. Job ID: [id number]
== END 2019-09-20 10:58 | disposition home or self-care (01) ==
LOC: SDC 06:16 → SURG A 09:13 → SDC 09-20 10:58
PROVIDERS: ATTEND Orthopaedic Surgery
PROC: 0SRD0J9 Replacement of Left Knee Joint with Synthetic Substitute, Cemented, Open Approach (ICD-10-PCS; principal; 2019-09-17)
PROC: 8E0YXBZ Computer Assisted Procedure of Lower Extremity (ICD-10-PCS; 2019-09-17)
PROC: 3E0T3BZ Introduction of Anesthetic Agent into Peripheral Nerves and Plexi, Percutaneous Approach (ICD-10-PCS; 2019-09-17)
PROC: 3E0T3BZ Introduction of Anesthetic Agent into Peripheral Nerves and Plexi, Percutaneous Approach (ICD-10-PCS; 2019-09-17)
DX: M17.12 Unilateral primary osteoarthritis, left knee (principal); G89.18 Other acute postprocedural pain; I13.0 Hypertensive heart and chronic kidney disease with heart failure and stage 1 through stage 4 chronic kidney disease, or unspecified chronic kidney disease; E11.22 Type 2 diabetes mellitus with diabetic chronic kidney disease; N18.3 Chronic kidney disease, stage 3 (moderate); I50.9 Heart failure, unspecified; D63.1 Anemia in chronic kidney disease; I25.10 Atherosclerotic heart disease of native coronary artery without angina pectoris; E78.5 Hyperlipidemia, unspecified; G47.33 Obstructive sleep apnea (adult) (pediatric); F31.9 Bipolar disorder, unspecified; I25.2 Old myocardial infarction; K21.9 Gastro-esophageal reflux disease without esophagitis; F17.210 Nicotine dependence, cigarettes, uncomplicated; Z86.73 Personal history of transient ischemic attack (TIA), and cerebral infarction without residual deficits; Z79.82 Long term (current) use of aspirin; Z79.84 Long term (current) use of oral hypoglycemic drugs; Z79.899 Other long term (current) drug therapy; Z88.1 Allergy status to other antibiotic agents; Z88.5 Allergy status to narcotic agent; Z88.8 Allergy status to other drugs, medicaments and biological substances; Z96.651 Presence of right artificial knee joint; Z98.1 Arthrodesis status; Z99.89 Dependence on other enabling machines and devices
CPT/HCPCS: 20985; 27447; 64445; 64447; 73560; 82962; 85027; 97110 ×2; 97116 ×4; 97139 ×5; 97150 ×2; 97530 ×3; 98962; C1713; C1776; 36415; 36416; J0171; J0690; J1885; J2001; J2250; J2405; J2704; J2795; J3010; J3490

== ENCOUNTER 2020-11-19 14:51 | Inpatient (IN) | payer MEDICARE ==
[2020-11-19 16:11] LABS: ALT (SGPT) 12 U/L (8-55); AST (SGOT) 21 U/L (5-34); Albumin 4.3 g/dL (3.4-4.8); Alkaline Phosphatase 94 U/L (40-110); Anion Gap 17 mmol/L (10-20); BUN (Urea Nitrogen) 16 mg/dL (9.8-20.1); Bilirubin, Total Less than 0.2 mg/dL (0.2-1.2); Calc. Creatinine Clearance 0 mL/min (70-130); Calcium 9.2 mg/dL (7.8-10.44); Carbon Dioxide 22 mmol/L (23-31); Chloride 96 mmol/L (98-107); Globulin 3.3 g/dL (2.4-3.5); Glucose 118 mg/dL (80-115); Potassium 4.3 mmol/L (3.5-5.1); Protein, Total 7.6 g/dL (5.8-8.1); Sodium 131 mmol/L (136-145)
[2020-11-19 16:25] LABS: #Basophils 0.1 thou/uL (0.0-0.2); #Eosinphils 0.4 thou/uL (0.0-0.7); #Lymphocytes 2.4 thou/uL (1.20-3.40); #Monocytes 1.3 thou/uL (0.11-0.59); #Neutrophils 4.9 thou/uL (1.40-6.50); %Basophils 0.8 % (0.0-1.0); %Eosinophils 4.1 % (0.0-10.0); %Lymphocytes 26.9 % (21.0-51.0); %Monocytes 13.9 % (0.0-10.0); %Neutrophils 54.2 % (42.0-75.0); Hemoglobin 9.1 g/dL (12.0-16.0); Mean Corpuscular HGB CONC 30.6 g/dL (32.0-36.0); Mean Corpuscular Hemoglobin 18.1 pg (27.0-31.0); Mean Corpuscular Volume 59.4 fL (78.0-98.0); Mean Platelet Volume 6.2 fL (7.4-10.4); Platelet Count 322 thou/uL (130-400); RBC Distribution Width 18.5 % (11.5-14.5); Red Blood Cell (RBC) Count 5.04 mill/uL (4.20-5.40)
[2020-11-19] MEDS ORDERED: Lidocaine Viscous Sol 2% 15 ml UD Cup ONE (16:39)
[2020-11-19] MEDS ORDERED: Pantoprazole 40 MG VIAL ONE (16:40)
[2020-11-19] MEDS ORDERED: Mag-Al 1200 mg/1200 mg/30 ML UDCUP ONE (16:40)
[2020-11-19] MEDS ORDERED: Sucralfate 1 GM/10 ML UDCUP ONE (16:40)
[2020-11-19] MEDS ORDERED: HYDROcodone/Acetaminophen 10/325 mg Tablet ONE (17:54)
[2020-11-19 18:34] LABS: Troponin I 0.043 ng/mL (< 0.028)
[2020-11-19] MEDS ORDERED: Lactated Ringer's 1,000 ML IV SCH (20:15)
[2020-11-19] MEDS ORDERED: Ondansetron PF 4 MG/2 ML Vial IVP PRN (20:15)
[2020-11-19] MEDS ORDERED: Acetaminophen 325 MG TAB PO PRN (20:15)
[2020-11-19] MEDS ORDERED: Ondansetron ODT 4 MG TAB SL PRN (20:15)
[2020-11-19 21:46] LABS: Troponin I 0.066 ng/mL (< 0.028)
[2020-11-19 22:04] VITALS: BMI 39.6
[2020-11-19] MEDS ORDERED: Dextrose 5% in Water 1,000 ML IV PRN (23:08)
[2020-11-19] MEDS ORDERED: Dextrose 50% Abboject 50 ML SYRINGE SLOW IVP PRN (23:08)
[2020-11-19] MEDS ORDERED: HumaLOG 300 UNITS/3 ML VIAL SC PRN ×2 (23:08)
[2020-11-19] MEDS ORDERED: Sucralfate 1 GM TAB PO SCH (23:59)
[2020-11-20] MEDS: Sodium Chloride 0.9% 1,000 ML IV SCH ×2 (00:10→20:34)
[2020-11-20] MEDS ORDERED: Zolpidem Tartrate 5 MG TAB PO SCH ×2 (00:15→22:00)
[2020-11-20 00:44] LABS: Hemoglobin 8.7 g/dL (12.0-16.0)
[2020-11-20 00:46] LABS: Lactic Acid 1.7 mmol/L (0.5-2.2)
[2020-11-20 00:48] LABS: Magnesium 1.9 mg/dL (1.6-2.6)
[2020-11-20 01:56] LABS: CKMB 4.5 ng/mL (0-6.6)
[2020-11-20 04:56] LABS: Hemoglobin 8.7 g/dL (12.0-16.0)
[2020-11-20 05:05] LABS: CKMB 4.3 ng/mL (0-6.6)
[2020-11-20 06:46] LABS: SARS-CoV-2 PCR by NAA Not Detected (NotDetected)
[2020-11-20] MEDS: Carvedilol 6.25 MG TAB PO SCH ×2 (09:01→15:54)
[2020-11-20] MEDS: Pantoprazole 40 MG VIAL IVP SCH ×2 (09:03→20:34)
[2020-11-20] MEDS ORDERED: Fentanyl 100 MCG/2 ML VIAL SLOW IVP SCH (10:15)
[2020-11-20 12:20] LABS: Hemoglobin 8.5 g/dL (12.0-16.0)
[2020-11-20] MEDS ORDERED: GoLYTELY 4,000 ml Bottle PO SCH (17:00)
[2020-11-20] MEDS: Acetaminophen 650 MG/20.3 ML UDCUP PO PRN (17:42)
[2020-11-20] MEDS: Aripiprazole 10 MG TAB PO SCH (20:33)
[2020-11-21 04:40] LABS: Iron 14 ug/dL (50-170); Iron Binding Capacity, Total 410 mcg/dL (265-497)
[2020-11-21 05:03] LABS: Ferritin 10.89 ng/mL (10-291)
[2020-11-21] MEDS: Carvedilol 6.25 MG TAB PO SCH ×2 (07:50→17:28)
[2020-11-21] MEDS: Acetaminophen 650 MG/20.3 ML UDCUP PO PRN (07:50)
[2020-11-21] MEDS: Pantoprazole 40 MG VIAL IVP SCH ×2 (07:51→20:28)
[2020-11-21] MEDS ORDERED: ePHEDrine 50 MG/ML VIAL ONE (13:46)
[2020-11-21] MEDS ORDERED: PROPOFOL 200 MG/20 ML VIAL ONE (13:46)
[2020-11-21] MEDS: Sodium Chloride 0.9% 1,000 ML IV SCH (17:38)
[2020-11-21] MEDS ORDERED: Ketamine 50 MG/ML (10ML VIAL) ONE (21:04)
[2020-11-21] MEDS: Aripiprazole 10 MG TAB PO SCH (23:28)
[2020-11-22] MEDS ORDERED: Zolpidem Tartrate 5 MG TAB PO SCH (00:30)
[2020-11-22 04:16] LABS: #Eosinphils 0.3 thou/uL (0.0-0.7); #Monocytes 1.1 thou/uL (0.11-0.59); #Neutrophils 5.5 thou/uL (1.40-6.50); %Basophils 0.4 % (0.0-1.0); %Eosinophils 3.3 % (0.0-10.0); %Monocytes 12.7 % (0.0-10.0); %Neutrophils 61.7 % (42.0-75.0); Hemoglobin 8.7 g/dL (12.0-16.0); Mean Corpuscular HGB CONC 30.2 g/dL (32.0-36.0); Mean Corpuscular Hemoglobin 18.1 pg (27.0-31.0); Mean Platelet Volume 5.9 fL (7.4-10.4); Platelet Count 274 thou/uL (130-400); RBC Distribution Width 18.2 % (11.5-14.5); White Blood Cell (WBC) Count 8.9 thou/uL (4.8-10.8)
[2020-11-22 04:22] LABS: Anion Gap 13 mmol/L (10-20); BUN (Urea Nitrogen) 8 mg/dL (9.8-20.1); Calc. Creatinine Clearance 106 mL/min (70-130); Calcium 8.7 mg/dL (7.8-10.44); Carbon Dioxide 23 mmol/L (23-31); Chloride 102 mmol/L (98-107); Glucose 181 mg/dL (80-115); Potassium 3.7 mmol/L (3.5-5.1); Sodium 134 mmol/L (136-145)
[2020-11-22 07:38] VITALS: BP 134/65; TEMP 98.8
[2020-11-22] MEDS: Carvedilol 6.25 MG TAB PO SCH (08:44)
[2020-11-22] MEDS: Pantoprazole 40 MG VIAL IVP SCH (08:44)
[2020-11-22] MEDS ORDERED: Ferrous Sulfate 325 MG TAB PO SCH (17:00)
== END 2020-11-22 11:00 | disposition home or self-care (01) | DRG 378 ==
LOC: ERS 14:51 → 2NO 17:59
PROVIDERS: ADMIT Internal Medicine; ATTEND Hospitalist
PROC: 0DJ08ZZ Inspection of Upper Intestinal Tract, Via Natural or Artificial Opening Endoscopic (ICD-10-PCS; principal; 2020-11-21)
PROC: 0DJD8ZZ Inspection of Lower Intestinal Tract, Via Natural or Artificial Opening Endoscopic (ICD-10-PCS; 2020-11-21)
DX: K31.811 Angiodysplasia of stomach and duodenum with bleeding (principal); D62 Acute posthemorrhagic anemia; I24.8 Other forms of acute ischemic heart disease; N17.9 Acute kidney failure, unspecified; I13.0 Hypertensive heart and chronic kidney disease with heart failure and stage 1 through stage 4 chronic kidney disease, or unspecified chronic kidney disease; I50.9 Heart failure, unspecified; E11.22 Type 2 diabetes mellitus with diabetic chronic kidney disease; F17.210 Nicotine dependence, cigarettes, uncomplicated; M19.90 Unspecified osteoarthritis, unspecified site; K21.9 Gastro-esophageal reflux disease without esophagitis; E66.9 Obesity, unspecified; F41.9 Anxiety disorder, unspecified; G47.00 Insomnia, unspecified; F31.9 Bipolar disorder, unspecified; I25.10 Atherosclerotic heart disease of native coronary artery without angina pectoris; N18.9 Chronic kidney disease, unspecified; G47.33 Obstructive sleep apnea (adult) (pediatric); D50.9 Iron deficiency anemia, unspecified; Z96.653 Presence of artificial knee joint, bilateral; Z88.1 Allergy status to other antibiotic agents; Z88.5 Allergy status to narcotic agent; Z88.8 Allergy status to other drugs, medicaments and biological substances; Z79.899 Other long term (current) drug therapy; Z79.84 Long term (current) use of oral hypoglycemic drugs; Z86.73 Personal history of transient ischemic attack (TIA), and cerebral infarction without residual deficits; Z98.1 Arthrodesis status; Z68.39 Body mass index [BMI] 39.0-39.9, adult; E78.5 Hyperlipidemia, unspecified
CPT/HCPCS: 36415; 36416; 71045; 80048; 80053; 80061; 81001; 82274; 82553; 82607; 82728; 82746; 83036; 83540; 83550; 83605; 83690; 83735; 83880; 84484; 85025; 85060; 85379; 86140; 86850; 86900; 86901; 87635; 93005; 93306; 94640; 96374; C9113; J1815; J2704; J3010; J3490; J7620; U0003; U0005

== ENCOUNTER 2023-07-17 10:29 | Emergency (ER) | payer OTHER, MEDICARE | END 2023-07-17 11:32 | disposition home or self-care (01) | LOC: ERS 10:29 | DX: S09.90XA Unspecified injury of head, initial encounter (principal); S01.81XA Laceration without foreign body of other part of head, initial encounter; I11.0 Hypertensive heart disease with heart failure; I50.9 Heart failure, unspecified; E11.9 Type 2 diabetes mellitus without complications; F17.210 Nicotine dependence, cigarettes, uncomplicated; W01.10XA Fall on same level from slipping, tripping and stumbling with subsequent striking against unspecified object, initial encounter | CPT/HCPCS: 70450 ==

== ENCOUNTER 2023-08-10 04:31 | Inpatient (IN) | payer MEDICARE ==
[2023-08-10 05:01] LABS: #Eosinphils 0.2 thou/uL (0.0-0.7); #Monocytes 0.9 thou/uL (0.11-0.59); #Neutrophils 5.1 thou/uL (1.40-6.50); %Basophils 0.5 % (0.0-1.0); %Eosinophils 2.4 % (0.0-10.0); %Lymphocytes 23.1 % (21.0-51.0); %Monocytes 10.8 % (0.0-10.0); %Neutrophils 63.1 % (42.0-75.0); Hematocrit 41.3 % (36.0-47.0); Hemoglobin 12.9 g/dL (12.0-16.0); Mean Corpuscular HGB CONC 31.2 g/dL (32.0-36.0); Mean Corpuscular Hemoglobin 24.5 pg (27.0-31.0); Mean Corpuscular Volume 78.5 fl (78.0-98.0); Mean Platelet Volume 11.7 fL (7.4-10.4); Platelet Count 135 10x3/uL (130-400); RBC Distribution Width 15.1 % (11.5-14.5); Red Blood Cell (RBC) Count 5.26 mill/uL (4.20-5.40); White Blood Cell (WBC) Count 8.1 10x3/uL (4.8-10.8)
[2023-08-10] MEDS ORDERED: Aspirin Chewable 81 MG TAB ONE (05:01)
[2023-08-10] MEDS ORDERED: Nitroglycerin 0.4 MG TAB 1 EACH ONE ×2 (05:01→05:41)
[2023-08-10 05:25] LABS: ALT (SGPT) 15 U/L (8-55); AST (SGOT) 20 U/L (5-34); Albumin 4.3 g/dL (3.4-4.8); Alkaline Phosphatase 67 U/L (40-110); Anion Gap 12 mmol/L (10-20); BUN (Urea Nitrogen) 12 mg/dL (9.8-20.1); Bilirubin, Total Less than 0.2 mg/dL (0.2-1.2); Calc. Creatinine Clearance 0 mL/min (70-130); Calcium 9.5 mg/dL (7.8-10.44); Carbon Dioxide 27 mmol/L (23-31); Chloride 103 mmol/L (98-107); Estimated GFR 66; Globulin 2.6 g/dL (2.4-3.5); Glucose 130 mg/dL (80-115); Lipase 7 U/L (8-78); Potassium 4.4 mmol/L (3.5-5.1); Protein, Total 6.9 g/dL (5.8-8.1); Sodium 138 mmol/L (136-145)
[2023-08-10 05:30] LABS: Troponin I 1.565 ng/mL (< 0.028)
[2023-08-10] MEDS ORDERED: Nitroglycerin 50 MG/250 ML BOT 250 ML ONE ×2 (06:12→13:55)
[2023-08-10 06:35] LABS: SARS-CoV-2 NAA Rapid Test Not Detected (NotDetected)
[2023-08-10] MEDS ORDERED: Nitroglycerin 50 MG/250 ML BOT 250 ML IVPB SCH (06:45)
[2023-08-10 07:27] LABS: Critical Call Chem Troponin I RESULT DECREASING; Troponin I 1.384 ng/mL (< 0.028)
[2023-08-10] MEDS ORDERED: Ondansetron PF 4 MG/2 ML Vial IVP PRN (07:47)
[2023-08-10] MEDS ORDERED: Acetaminophen 325 MG TAB PO PRN (07:47)
[2023-08-10] MEDS ORDERED: Glucagon 1 MG/ML KIT IM PRN (07:47)
[2023-08-10] MEDS ORDERED: Dextrose 50% Abboject 50 ML SYRINGE SLOW IVP PRN (07:47)
[2023-08-10] MEDS ORDERED: Dextrose 5% in Water 1,000 ML IV PRN (07:47)
[2023-08-10] MEDS ORDERED: HumaLOG 300 UNITS/3 ML VIAL SC PRN ×2 (07:47)
[2023-08-10] MEDS ORDERED: LOVENOX 1MG/KG Q12H IVPB PRN (07:52)
[2023-08-10] MEDS ORDERED: Nicotine 14 MG PATCH TD PRN (07:53)
[2023-08-10] MEDS ORDERED: Sodium Chloride 0.9% 1,000 ML IV SCH ×3 (08:00→15:45)
[2023-08-10 08:31] VITALS: BMI 35.4
[2023-08-10] MEDS ORDERED: BuPROPion XL 150 MG ER.TAB PO SCH ×2 (09:00→10:45)
[2023-08-10] MEDS ORDERED: Aspirin Chewable 81 MG TAB PO SCH (09:00)
[2023-08-10 10:27] LABS: Troponin I 1.308 ng/mL (< 0.028)
[2023-08-10] MEDS: Aripiprazole 10 MG TAB PO SCH (10:37)
[2023-08-10] MEDS: Escitalopram Oxalate 20 mg Tablet PO SCH (10:37)
[2023-08-10] MEDS: Fish Oil 1,000 MG CAP PO SCH ×2 (10:38→20:30)
[2023-08-10] MEDS: HYDROcodone/Acetaminophen 10/325 mg Tablet PO PRN ×2 (10:39→20:31)
[2023-08-10] MEDS: Gabapentin 300 MG CAP PO SCH ×4 (10:39→20:30)
[2023-08-10] MEDS: carBAMazepine SR 300 mg Capsule PO SCH ×2 (10:40→20:32)
[2023-08-10] MEDS: clonazePAM 0.5 MG TAB PO SCH ×3 (10:40→20:31)
[2023-08-10] MEDS: Carvedilol 3.125 MG TAB PO SCH ×2 (10:48→16:17)
[2023-08-10] MEDS ORDERED: Carvedilol 3.125 MG TAB PO SCH (11:00)
[2023-08-10] MEDS ORDERED: Lidocaine 1% PF 5 ML VIAL ONE (13:55)
[2023-08-10] MEDS ORDERED: Heparin 10,000 UNITS/ 10 ML VIAL ONE (13:55)
[2023-08-10] MEDS ORDERED: Verapamil 5 MG/2 ML VIAL ONE (13:55)
[2023-08-10] MEDS ORDERED: Midazolam HCl 2 mg/2 ml Vial ONE (14:29)
[2023-08-10] MEDS ORDERED: fentaNYL 50 mcg/mL 1 mL Vial ONE (14:29)
[2023-08-10] MEDS ORDERED: TICAGRELOR 90 MG TABLET ONE (15:18)
[2023-08-10] MEDS ORDERED: hydrALAZINE 20 MG/ML VIAL ONE (15:27)
[2023-08-10] MEDS ORDERED: fentaNYL 50 mcg/mL 1 mL Vial SLOW IVP SCH (16:45)
[2023-08-10] MEDS ORDERED: QUEtiapine 25 MG TAB PO SCH (21:00)
[2023-08-10] MEDS ORDERED: Atorvastatin Calcium 40 MG TAB PO SCH (21:00)
[2023-08-11] MEDS: HYDROcodone/Acetaminophen 10/325 mg Tablet PO PRN ×2 (02:31→10:30)
[2023-08-11 04:46] LABS: #Eosinphils 0.1 thou/uL (0.0-0.7); #Monocytes 0.7 thou/uL (0.11-0.59); #Neutrophils 3.7 thou/uL (1.40-6.50); %Basophils 0.5 % (0.0-1.0); %Eosinophils 2.3 % (0.0-10.0); %Lymphocytes 25.1 % (21.0-51.0); %Monocytes 10.8 % (0.0-10.0); Hematocrit 42.4 % (36.0-47.0); Hemoglobin 13.3 g/dL (12.0-16.0); Mean Corpuscular HGB CONC 31.4 g/dL (32.0-36.0); Mean Corpuscular Hemoglobin 24.5 pg (27.0-31.0); Mean Corpuscular Volume 78.2 fl (78.0-98.0); Mean Platelet Volume 12.5 fL (7.4-10.4); Platelet Count 127 10x3/uL (130-400); RBC Distribution Width 15.1 % (11.5-14.5); Red Blood Cell (RBC) Count 5.42 mill/uL (4.20-5.40); White Blood Cell (WBC) Count 6.1 10x3/uL (4.8-10.8)
[2023-08-11 05:31] LABS: ALT (SGPT) 13 U/L (8-55); AST (SGOT) 12 U/L (5-34); Albumin 3.8 g/dL (3.4-4.8); Alkaline Phosphatase 65 U/L (40-110); Anion Gap 15 mmol/L (10-20); BUN (Urea Nitrogen) 8 mg/dL (9.8-20.1); Bilirubin, Total 0.3 mg/dL (0.2-1.2); Calc. Creatinine Clearance 100 mL/min (70-130); Calcium 9.1 mg/dL (7.8-10.44); Carbon Dioxide 21 mmol/L (23-31); Cardiac Risk 5.1 (Less than 4.5); Chloride 106 mmol/L (98-107); Cholesterol 226 mg/dl (< 200 Desired); Estimated GFR 78; Globulin 2.4 g/dL (2.4-3.5); Glucose 106 mg/dL (80-115); HDL Cholesterol 44 mg/dL (>60 Neg Risk); Potassium 4.1 mmol/L (3.5-5.1); Protein, Total 6.2 g/dL (5.8-8.1); Sodium 138 mmol/L (136-145)
[2023-08-11 06:16] LABS: Triglycerides 170 mg/dL (Less than 150)
[2023-08-11 06:45] LABS: LDL Cholesterol, Calculated 150 mg/dL
[2023-08-11 08:28] VITALS: TEMP 97.7
[2023-08-11] MEDS: Escitalopram Oxalate 20 mg Tablet PO SCH (08:50)
[2023-08-11] MEDS: Fish Oil 1,000 MG CAP PO SCH (08:50)
[2023-08-11] MEDS: clonazePAM 0.5 MG TAB PO SCH (08:50)
[2023-08-11] MEDS: Carvedilol 3.125 MG TAB PO SCH (08:50)
[2023-08-11] MEDS: Aripiprazole 10 MG TAB PO SCH (08:50)
[2023-08-11] MEDS: Gabapentin 300 MG CAP PO SCH ×2 (08:54→12:02)
[2023-08-11] MEDS ORDERED: BuPROPion XL 150 MG ER.TAB PO SCH (09:00)
[2023-08-11] MEDS ORDERED: Aspirin 81 mg Enteric Coated Tablet PO SCH (09:00)
[2023-08-11] MEDS ORDERED: TICAGRELOR 90 MG TABLET PO SCH (09:00)
[2023-08-11] MEDS ORDERED: Losartan 25 MG TAB PO SCH (09:00)
[2023-08-11] MEDS: carBAMazepine SR 300 mg Capsule PO SCH (10:30)
[2023-08-11 12:06] VITALS: BP 148/70
== END 2023-08-11 13:30 | disposition home or self-care (01) | DRG 322 ==
LOC: ERS 04:31 → CCU 06:45 → 2SW 22:50
PROVIDERS: ADMIT Student in an Organized Health Care Education/Training Program; ATTEND Hospitalist
PROC: 4A023N7 Measurement of Cardiac Sampling and Pressure, Left Heart, Percutaneous Approach (ICD-10-PCS; principal; 2023-08-10)
PROC: 027034Z Dilation of Coronary Artery, One Artery with Drug-eluting Intraluminal Device, Percutaneous Approach (ICD-10-PCS; 2023-08-10)
PROC: B2111ZZ Fluoroscopy of Multiple Coronary Arteries using Low Osmolar Contrast (ICD-10-PCS; 2023-08-10)
PROC: B2151ZZ Fluoroscopy of Left Heart using Low Osmolar Contrast (ICD-10-PCS; 2023-08-10)
PROC: B241ZZ3 Ultrasonography of Multiple Coronary Arteries, Intravascular (ICD-10-PCS; 2023-08-10)
DX: I21.4 Non-ST elevation (NSTEMI) myocardial infarction (principal); I42.9 Cardiomyopathy, unspecified; I10 Essential (primary) hypertension; E78.5 Hyperlipidemia, unspecified; I25.10 Atherosclerotic heart disease of native coronary artery without angina pectoris; G89.29 Other chronic pain; F31.9 Bipolar disorder, unspecified; F17.210 Nicotine dependence, cigarettes, uncomplicated; Z96.653 Presence of artificial knee joint, bilateral; M54.9 Dorsalgia, unspecified; K21.9 Gastro-esophageal reflux disease without esophagitis; Z20.822 Contact with and (suspected) exposure to COVID-19; Z88.8 Allergy status to other drugs, medicaments and biological substances; Z88.0 Allergy status to penicillin; Z88.6 Allergy status to analgesic agent; Z88.1 Allergy status to other antibiotic agents; Z79.82 Long term (current) use of aspirin; Z79.899 Other long term (current) drug therapy; Z98.890 Other specified postprocedural states; Z90.710 Acquired absence of both cervix and uterus; Z90.89 Acquired absence of other organs; Z83.3 Family history of diabetes mellitus; Z82.49 Family history of ischemic heart disease and other diseases of the circulatory system
CPT/HCPCS: 36415; 36416; 71045; 80053; 80061; 83690; 83880; 84484; 85025; 85347; 92928; 92978; 93005; 93010; 93306; 93458; 96365; 96372; 97139; 99152; 99153; C1769; C1874; C1887; C1894; C9600; J0360; J1644; J1650; J1815; J2250; J2405; J3010; J7050

== ENCOUNTER 2023-10-26 10:54 | Outpatient (CLI) | payer MEDICARE | END 2023-10-26 10:55 | disposition home or self-care (01) | LOC: BICRAD 10:54 | PROVIDERS: ATTEND Family Medicine | DX: M54.50 Low back pain, unspecified (principal); M47.814 Spondylosis without myelopathy or radiculopathy, thoracic region | CPT/HCPCS: 72072; 72100 ==

== ENCOUNTER 2024-03-21 16:11 | Outpatient (CLI) | payer OTHER | END 2024-03-21 16:12 | disposition home or self-care (01) | LOC: BICRAD 16:11 | PROVIDERS: ATTEND Family Medicine | DX: M79.675 Pain in left toe(s) (principal) ==